=== PATIENT | female | born 1995 | race Hispanic/Latino ===

== ENCOUNTER 2020-07-05 09:52 | Emergency (ER) | payer OTHER ==
--- NOTE | 2020-07-05 10:06 | EDPHYS ---
Physician Documentation [facility] Name: Adelaida Pacheco Age: 25 yrs Sex: Female : 1995 Arrival Date: 07/05/2020 Time: 09:54 Bed 18 Private MD: CHRISTIE Physician Giuseppe Martin CONVEYOR FEEDER: 07/05 09:58 LMP 06/20/2020 jd3 Historical: - Allergies: 09:59 No Known Allergies; jd3 - PMHx: 09:59 Bipolar disorder; Schizophrenia; jd3 - PSHx: 09:59 ; jd3 - Immunization history:: Adult Immunizations unknown. - Social history:: Smoking status: Patient/guardian denies using tobacco, Stopped _ months ago 3. Vital Signs: 09:58 BP 131 / 87; Pulse 107; Resp 17 S; Temp 97.8(TE); Pulse Ox 99% on R/A; Weight 98.88 kg jd3 (R); Height 5 ft. 4 in. (162.56 cm) (R); Pain 10/10; 09:58 Body Mass Index 37.42 (98.88 kg, 162.56 cm) jd3 MDM: 09:59 Patient medically screened. jr8 Administered Medications: No medications were administered Disposition: 07/05/20 10:06 Patient left the facility before being seen by provider. - Patient left due to feeling better. Signatures: Javier Mathews PA PA jr8 Jarrell Caba RN RN jd3 Corrections: (The following items were deleted from the chart) 10:12 10:06 07/05/2020 10:06 Patient left the facility before being seen by provider. Reason jd3 stated they are leaving due to feeling better. jr8
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
[2020-07-05 10:41] VITALS: BP 131/87; TEMP 97.8; O2SAT 99
== END 2020-07-05 10:12 | disposition left against medical advice (07) ==
LOC: ER 09:52
DX: Z53.21 Procedure and treatment not carried out due to patient leaving prior to being seen by health care provider (principal)
CPT/HCPCS: 99283

== ENCOUNTER 2020-07-06 05:49 | Emergency (ER) | payer OTHER, SELFPAY ==
--- OUTSIDE RECORDS SUMMARY | 2020-07-06 05:52 | XMS REPORT | Clinical Summary ---
:1995 Author Organization [facility] Address [address] [place] [address] Care Team Providers Name Role Phone Sharpless Primary Care Provider Allergies No Known Allergies Medications Medication Sig Dispensed Refills Start Date End Date Status traZODone (DESYREL) 100 MG Take 200 mg by 0 Active tablet mouth nightly. risperiDONE (RISPERDAL) 1 Take 1 mg by 0 Active MG tablet mouth 2 (two) times daily. lisdexamfetamine (VYVANSE) Take 20 mg by 0 Active 20 MG capsule mouth every morning. Active Problems Not on file Social History Tobacco Use Types Packs/Day Years Used Date Never Smoker Smokeless Tobacco: Never Used Alcohol Use Drinks/Week oz/Week Comments No Sex Assigned at Date Recorded Not on file Last Filed Vital Signs Not on file Plan of Treatment Health Maintenance Due Date Last Done Comments CERVICAL CANCER SCREENING PAP ONLY (Age 21-65) 2015 INFLUENZA VACCINE (#1) 2020 Results Not on fileafter 07/06/2019
--- OUTSIDE RECORDS SUMMARY | 2020-07-06 05:52 | XMS REPORT | Clinical Summary ---
:1995 Author Organization [facility] Address [address] [place] [address] Care Team Providers Name Role Phone Unavailable Primary Care Provider Unavailable Allergies No Known Active Allergies Medications Not on file Active Problems Not on file Social History Tobacco Use Types Packs/Day Years Used Date Never Assessed Sex Assigned at Date Recorded Not on file Last Filed Vital Signs Not on file Plan of Treatment Not on file Results Not on fileafter 07/06/2019
--- OUTSIDE RECORDS SUMMARY | 2020-07-06 05:52 | XMS REPORT | Clinical Summary ---
:[address] [facility] Address [address] [place] [address] Care Team Providers Name Role Phone Unavailable Primary Care Provider Unavailable Allergies No Known Active Allergies Medications Medication Sig Dispensed Refills Start Date End Date Status traZODone (DESYREL) 100 Take 100 mg by 0 Active mg tablet mouth at bedtime nightly Dose and frequency unknown . PALIPERIDONE PALMITATE Inject 0 Active (INVEGA SUSTENNA IM) intramuscularly. lisdexamfetamine Take by mouth 0 Active (VYVANSE) 10 mg cap Dose and frequency unknown . Active Problems Problem Noted Date Suicidal behavior Substance induced mood disorder Aggression Psychosis Cocaine use disorder, moderate, dependence Social History Tobacco Use Types Packs/Day Years Used Date Current Every Day Smoker Cigarettes 1 Alcohol Use Drinks/Week oz/Week Comments No Sex Assigned at Date Recorded Not on file Last Filed Vital Signs Not on file Plan of Treatment Health Maintenance Due Date Last Done Comments Pap Cervical Cancer Scrn 2015 IMM Influenza Seasonal Mar to August (>/= 19 yrs) 03/14/2020 Results Not on fileafter 07/06/2019 Insurance Payer Benefit Plan / Subscriber ID Effective Phone Address T ype Group Dates [place] [employer] [id number] SSI [id number] 2019-Pres [phone] [place] [address] [employer] SELF-PAY SELF-PAY [id number] 2019-Pres [phone] [facility] [place] [address] [place] [phone] (Work) [phone]
--- OUTSIDE RECORDS SUMMARY | 2020-07-06 05:55 | XMS REPORT | Continuity of Care Document ---
:1995 Author Organization [facility] t Address [address] [place] [address] Care Team Providers Name Role Phone UNKNOWN Primary Care Physician Unavailable GISEL BEE M.D. Attending Clinician Unavailable KYLE CUNNINGHAM Attending Clinician Unavailable GISEL BEE M.D. 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 Health mood mood disorder disorder Aggression Aggression Disease Active [facility] Psychosis Psychosis Disease Active [facility] Cocaine Cocaine Disease Active [facility] use use Health disorder, disorder, moderate, moderate, dependence dependence Allergies, Adverse Reactions, Alerts Allergy Allergy Status Severity Reaction(s) Onset Inactive Treating Comm ents Source Name Type Date Date Clinician No Known DA Active [facility]11 [place] s 00:[facility]: [facility] 00 are [facility] No Known DA Active [facility] Allergie 09-16 [place] s 00:[facility]: [facility] 00 are [facility] risperid DA Active [facility] one 09-11 [place] 00:00: [facility] 00 are [facility] trazodon DA Active [facility] e 09-11 [place] 00:00: [facility] 00 are [facility] No Known DA Active U 2018-06 [facility] Allergie 07-21 [place] s 00:00: [facility] 00 are [facility] No DA Active U 2018-06 [facility] Allergy 07-15 [place] Informat 00:00: Healthc ion 00 are Availabl Hanska e shellfis FA Active MO [facility] h 09-18 [place] derived 00:00: d 00 [facility] Social History Social Habit Start Date Stop Date Quantity Comments Source History of tobacco Cigarette Smoker [facility] use Sex Assigned At [place] Yazidi Cigarettes smoked 2019-04-16 2019-04-16 [facility] current (pack per 00:00:00 00:00:00 day) - Reported Tobacco use and 2018-02-09 2018-02-09 Never used [place] exposure 00:00:00 00:00:00 Yazidi Alcohol intake 2018-02-09 2018-02-09 Current [place] 00:00:00 00:00:00 non-drinker of Yazidi alcohol (finding) Smoking Status Start Date Stop Date Source Current every day smoker 2018-02-09 00:00:00 Daisy starkey Yazidi Never smoker [facility] Medications Ordered Filled Start Stop Current Ordering Indication Dosage Frequency Signature Comments Components Source Medication Medication Date Date Medication? Clinician (SIG) Name Name traZODone 2018-06 Yes 100mg Take 100 [facility] (DESYREL) 1-03 mg by Health 100 mg 19:57: mouth at tablet 05 bedtime nightly Dose and frequency unknown . PALIPERIDON 2018-06 Yes Inject Alize is E PALMITATE -03 intramuscu He alth (INVEGA 19:57: larly. SUSTENNA 05 IM) lisdexamfet 2019-1 Yes Take by [place] [facility] amine 1-03 mouth Dose Health (VYVANSE) 19:57: and 10 mg cap 05 frequency unknown . trazodone 2018-0 Yes Take by Rc on HCl 8- mouth. Methodi (TRAZODONE 23:29: st ORAL) 32 quetiapine 2017-0 Yes Take by Eveline ton fumarate 8-28 mouth. [facility] (SEROQUEL 23:29: st XR ORAL) 32 traZODone 2018-0 Yes 200mg QD Take [address] [facility] (DESYREL) 1-24 mg [facility] - 100 MG 04:25: mouth Medical tablet 04 nightly. Center risperiDONE 2018-0 Yes 1mg Q.5D Take [address] (RISPERDAL) 1-24 by mouth 2 Juli kes - 1 MG tablet 04:25: (two) Medic al 04 times Center daily. lisdexamfet 2018-0 Yes 20mg QD Take [address] amine 1-24 by mouth [facility] - (VYVANSE) 04:25: every Medical 20 MG 04 morning. Center capsule Procedures This patient has no known procedures. Plan of Care Planned Activity Planned Date Details Comments Source Future Scheduled 2020-03-14 [facility] Influenza [facility] 00:00:00 Seasonal Mar to August (>/= 19 yrs) [code = IMM Influenza Seasonal Mar to August (>/= 19 yrs)] Future Scheduled 2020-02-[address] [facility] - Test 00:00:00 (#1) [code = [facility] Center INFLUENZA VACCINE (#1)] Future Scheduled 2015 [facility] for [facility] 00:00:00 malignant neoplasm of cervix (procedure) [code = 581818268] Future Scheduled [address] [facility] - Test 00:00:00 malignant neoplasm Medical C enter of cervix (procedure) [code = 578262165] Encounters Start End Encounter Admission Attending Care Care Encounter Source Date/Time Date/Time Type Type Clinicians Facility Department ID 2019-04-26 2019-04-26 Outpatient [facility] [id number] [place] 00:00:00 00:00:00 [facility] 2019-04-16 2019-04-16 Emergency [facility] [id number] [place] 17:05:32 17:05:32 [facility] 2017-09-22 2017-09-22 [facility] [id number] 29 [facility] 18:37:00 18:37:00 Geovanny BATRES 2017-05-20 2017-06-11 Inpatient Leticia BEE [facility] [id number] [facility] 21:36:00 17:13:00 Geovanny BATRES Results Test Description Test Time Test Comments Results Result Comments Source DRUGS OF ABUSE SCREEN URINE 2020-04-03 01:02:00 Test Item Value Reference Range Interpretation Comme nts UR COCAINE (test code = COCAU) NEGATIVE NEGATIVE This is a toxicology qualitative screening test only, whichmay detect parent c ompound or metabolite or r elatedsubstance. If confirmatory te sting is desired, pleaserequest d rug screen confirmation. T hese results are unconfirmed and should be used only for medical pur poses. Cut-off concentration f or Cocaine is 300 ng/mLRecommende d screening cut-off concentrations by the[facility] Facilitytance Abuse and [facility] Administration. UR CANABINOIDS (test code = POSITIVE NEGATIVE A This is a toxicology qualitative CANU) screening test only whichmay detect parent compound or metabolite or relatedsubstanc e. If confirmatory testing is kaylee red, pleaserequest drug screen con firmation. These results areunco nfirmed and should be used only fo r medical purposes. Cut-off concent ration for THC is 50 ng/mLRecommende d screening cut-off concentrations by theC[facility] Facilitytance Abuse and [facility] l [facility] Services Administration. UR AMPHETAMINE (test code = POSITIVE NEGATIVE A The ingestion of natural herbal and AMPHU) plant productsc ontaining Ephedra/Ephedra -Metabolites can produce in urin eone or more substances capa ble of cross-reacting withAmphetamine /Methamphetamine immunoassays. This testprovides a preliminary res ult only. A more specificalterna tive chemical method must be used to obtain aconfirmed analytical resu lt. This is a toxicology qual itative screening test only which may detect parent compund or meta bolite or relatedsubstanc e. If confirmatory testing is kaylee red, pleaserequest drug screen con firmation. These results areunco nfirmed and should be used only fo r medical purposes. Cut-off concent ration for Amphetamines is 1000 ng/mLRecommende d screening cut-off concentrations by [facility] and [facility] l [facility] Administration. UR BARBITURATE (test code = NEGATIVE NEGATIVE This is a toxicology qualitative BARBQLU) screening test only whichmay detect parent compund or metabolite or relatedsubstanc e. If confirmatory testing is kaylee red, pleaserequest drug screen con firmation. These results areunco nfirmed and should be used only fo r medical purposes. Cut-off concent ration for Barbiturates is 200 ng/mLRecommende d screening cut-off concentrations by the[facility] Facilityt[facility] Abuse and [facility] l [facility] Administration. UR BENZODIAZEPINE (test code = NEGATIVE NEGATIVE This is a toxicology qualitative BENZU) screening test only whichmay detect parent compound or metabolite or relatedsubstanc e. If confirmatory testing is kaylee red, pleaserequest drug screen con firmation. These results areunco nfirmed and should be used only fo r medical purposes. Cut-off concent ration for Benzodiazepines is 200 ng/mLRecommende d screening cut-off concentrations by [facility] and [facility] Services Administration. UR OPIATES QUAL (test code = NEGATIVE NEGATIVE This is a toxicology qualitative OPIAQLU) screening test only whichmay detect parent compound or metabolite or relatedsubstanc e. If confirmatory testing is kaylee red, pleaserequest drug screen con firmation. These results areunco nfirmed and should be used only fo r medical purposes. Cut-off concent ration for Opiates is 300 ng/mLRec ommended screening cut-off concent rations by the[facility] Ab use and Mental Health Services Administration. UR PHENCYCLIDINE (PCP) (test NEGATIVE NEGATIVE This is a toxicology qualitative code = PHENCU) screening trish t only whichmay detect parent compund or metabolite or relatedsubstanc e. If confirmatory testing is kaylee red, pleaserequest drug screen con firmation. These results areunco nfirmed and should be used only fo r medical purposes. Cut-off concent ration for PCP is 25 ng/mLRecommende d screening cut-off concentrations by theC[facility] Facilitytance Abuse and [facility] l [facility] Services Administration. URINALYSIS [id number] 00:51:00 Test Item Value Reference Range Interpretation Comments UA COLOR (test code = COLU) YELLOW YELLOW UA APPEARANCE (test code = APPU) Clear CLEAR UA GLUCOSE DIPSTICK (test code = NEGATIVE NEGATIVE DGLUU) UA BILIRUBIN DIPSTICK (test code = NEGATIVE NEGATIVE BILU) UA KETONE DIPSTICK (test code = Trace NEGATIVE A KETU) UA SPECIFIC GRAVITY (test code = 1.011 1.001-1.030 SGU) UA BLOOD DIPSTICK (test code = FLORECITA) NEGATIVE NEGATIVE UA PH DIPSTICK (test code = STEPH) 6.0 5.0-9.0 UA PROTEIN DIPSTICK (test code = NEGATIVE NEGATIVE PROU) UA UROBILINOGEN DIPSTICK (test code 2.0 <=1.0 A = URO) UA NITRITE DIPSTICK (test code = NEGATIVE NEGATIVE FARIDEH) UA ASCORBIC ACID DIPSTICK (test NEGATIVE code = AAU) UA LEUKOCYTE ESTERASE DIPSTICK NEGATIVE NEGATIVE (test code = LEUU) UA WBC (test code = WBCU) 0-5 /HPF 0-5 UA RBC (test code = RBCU) 0-5 /HPF 0-5 UA EPITHELIAL CELLS (test code = OCC /LPF NONE-FEW EPIU) UA BACTERIA (test code = BACU) None /HPF NONE SEEN COMPREHENSIVE METABOLIC [id number] 23:58:00 Test Item Value Reference Range Interpretation Comments SODIUM (test code = 139 mmol/L 135-145 N NA) POTASSIUM (test 3.0 mmol/L 3.6-5.0 L code = K) CHLORIDE (test code 105 mmol/L 101-111 N = CL) CARBON DIOXIDE 22 mmol/L 21-31 N (test code = CO2) GLUCOSE (test code 175 mg/dl 70-100 H = GLU) BLOOD UREA NITROGEN 9 mg/dl 6-20 N (test code = BUN) GLOMERULAR >=60 max >60 The estimated FILTRATION RATE estimate glomerular (test code = GFR) filtration rate is computed usingpatient ra ce, age (>18), sex, and serum creatinin e. If anyof the ne eded data elements a re missing the Laboratory zane ot compute an estimation of t he glomerular filtration rate . CREATININE (test 0.92 mg/dL 0.44-1.03 N code = CREAT) TOTAL PROTEIN (test 6.5 g/dL 6.7-8.2 L code = PROT) ALBUMIN (test code 3.5 g/dL 3.2-5.5 N = ALB) CALCIUM (test code 9.1 mg/dL 8.5-10.5 N = CA) BILIRUBIN TOTAL 0.60 mg/dL 0.2-1.3 N (test code = BILT) SGOT/AST (test code 29 U/L 10-42 N = AST) SGPT/ALT (test code 11 U/L 10-60 N = ALT) ALKALINE 75 U/L 42-121 N PHOSPHATASE (test code = ALKP) THYROID STIMULATING [id number] 23:58:00 Test Item Value Reference Range Interpretation Comments THYROID STIMULATING HORMONE 2.335 uIU/ml 0.450-5.330 N (test code = TSH) [id number] 23:58:00 Test Item Value Reference Range Interpretation Comments ACETAMINOPHEN (test code = ACET) < 10.0 ug/ml 10.0-30.0 L [id number] 23:58:00 Test Item Value Reference Range Interpretation Comments SALICYLATE (test code = DELBERT) < 4.0 mg/dl 0.0-30.0 N [id number] 23:58:00 Test Item Value Reference Range Interpretation Comments ALCOHOL (test code = < 5 mg/dl Interpr etive Data:il: ALC) Ethanol Level To convert into le gal units, divide r esult by 1,000 COMPREHENSIVE METABOLIC [id number] 23:47:00 Test Item Value Reference Range Interpretation Comments SODIUM (test code = 139 mmol/L 135-145 N NA) POTASSIUM (test 3.0 mmol/L 3.6-5.0 L code = K) CHLORIDE (test code 105 mmol/L 101-111 N = CL) CARBON DIOXIDE 22 mmol/L 21-31 N (test code = CO2) GLUCOSE (test code 175 mg/dl 70-100 H = GLU) BLOOD UREA NITROGEN 9 mg/dl 6-20 N (test code = BUN) GLOMERULAR >=60 max >60 The estimated FILTRATION RATE estimate glomerular (test code = GFR) filtration rate is computed usingpatient ra ce, age (>18), sex, and serum creatinin e. If anyof the ne eded data elements a re missing the Laboratory zane ot compute an estimation of t he glomerular filtration rate . CREATININE (test 0.92 mg/dL 0.44-1.03 N code = CREAT) TOTAL PROTEIN (test 6.5 g/dL 6.7-8.2 L code = PROT) ALBUMIN (test code 3.5 g/dL 3.2-5.5 N = ALB) CALCIUM (test code 9.1 mg/dL 8.5-10.5 N = CA) BILIRUBIN TOTAL 0.60 mg/dL 0.2-1.3 N (test code = BILT) SGOT/AST (test code 29 U/L 10-42 N = AST) SGPT/ALT (test code 11 U/L 10-60 N = ALT) ALKALINE 75 U/L 42-121 N PHOSPHATASE (test code = ALKP) THYROID STIMULATING [id number] 23:47:00 Test Item Value Reference Range Interpretation Comments THYROID STIMULATING HORMONE (test uIU/ml 0.450-5.330 code = TSH) [id number] 23:47:00 Test Item Value Reference Range Interpretation Comments ACETAMINOPHEN (test code = ACET) < 10.0 ug/ml 10.0-30.0 L [id number] 23:47:00 Test Item Value Reference Range Interpretation Comments SALICYLATE (test code = DELBERT) < 4.0 mg/dl 0.0-30.0 N [id number] 23:47:00 Test Item Value Reference Range Interpretation Comments ALCOHOL (test code = < 5 mg/dl Interpr etive Data:il: ALC) Ethanol Level To convert into le gal units, divide r esult by 1,000 COMPREHENSIVE METABOLIC [id number] 23:44:00 Test Item Value Reference Range Interpretation Comments SODIUM (test code = 139 mmol/L 135-145 N NA) POTASSIUM (test 3.0 mmol/L 3.6-5.0 L code = K) CHLORIDE (test code 105 mmol/L 101-111 N = CL) CARBON DIOXIDE 22 mmol/L 21-31 N (test code = CO2) GLUCOSE (test code 175 mg/dl 70-100 H = GLU) BLOOD UREA NITROGEN 9 mg/dl 6-20 N (test code = BUN) GLOMERULAR >=60 max >60 The estimated FILTRATION RATE estimate glomerular (test code = GFR) filtration rate is computed usingpatient ra ce, age (>18), sex, and serum creatinin e. If anyof the ne eded data elements a re missing the Laboratory zane ot compute an estimation of t he glomerular filtration rate . CREATININE (test 0.92 mg/dL 0.44-1.03 N code = CREAT) TOTAL PROTEIN (test 6.5 g/dL 6.7-8.2 L code = PROT) ALBUMIN (test code 3.5 g/dL 3.2-5.5 N = ALB) CALCIUM (test code 9.1 mg/dL 8.5-10.5 N = CA) BILIRUBIN TOTAL mg/dL 0.2-1.3 (test code = BILT) SGOT/AST (test code U/L 10-42 = AST) SGPT/ALT (test code U/L 10-60 = ALT) ALKALINE U/L 42-121 PHOSPHATASE (test code = ALKP) THYROID STIMULATING [id number] 23:44:00 Test Item Value Reference Range Interpretation Comments THYROID STIMULATING HORMONE (test uIU/ml 0.450-5.330 code = TSH) [id number] 23:44:00 Test Item Value Reference Range Interpretation Comments ACETAMINOPHEN (test code = ACET) ug/ml 10.0-30.0 [id number] 23:44:00 Test Item Value Reference Range Interpretation Comments SALICYLATE (test code = DELBERT) mg/dl 0.0-30.0 [id number] 23:44:00 Test Item Value Reference Range Interpretation Comments ALCOHOL (test code = ALC) mg/dl COMPREHENSIVE METABOLIC [id number] 23:40:00 Test Item Value Reference Range Interpretation Comments SODIUM (test code = 139 mmol/L 135-145 N NA) POTASSIUM (test 3.0 mmol/L 3.6-5.0 L code = K) CHLORIDE (test code 105 mmol/L 101-111 N = CL) CARBON DIOXIDE 22 mmol/L 21-31 N (test code = CO2) GLUCOSE (test code 175 mg/dl 70-100 H = GLU) BLOOD UREA NITROGEN 9 mg/dl 6-20 N (test code = BUN) GLOMERULAR >=60 max >60 The estimated FILTRATION RATE estimate glomerular (test code = GFR) filtration rate is computed usingpatient ra ce, age (>18), sex, and serum creatinin e. If anyof the ne eded data elements a re missing the Laboratory zane ot compute an estimation of t he glomerular filtration rate . CREATININE (test 0.92 mg/dL 0.44-1.03 N code = CREAT) TOTAL PROTEIN (test g/dL 6.7-8.2 code = PROT) ALBUMIN (test code g/dL 3.2-5.5 = ALB) CALCIUM (test code 9.1 mg/dL 8.5-10.5 N = CA) BILIRUBIN TOTAL mg/dL 0.2-1.3 (test code = BILT) SGOT/AST (test code U/L 10-42 = AST) SGPT/ALT (test code U/L 10-60 = ALT) ALKALINE U/L 42-121 PHOSPHATASE (test code = ALKP) THYROID STIMULATING [id number] 23:40:00 Test Item Value Reference Range Interpretation Comments THYROID STIMULATING HORMONE (test uIU/ml 0.450-5.330 code = TSH) [id number] 23:40:00 Test Item Value Reference Range Interpretation Comments ACETAMINOPHEN (test code = ACET) ug/ml 10.0-30.0 [id number] 23:40:00 Test Item Value Reference Range Interpretation Comments SALICYLATE (test code = DELBERT) mg/dl 0.0-30.0 [id number] 23:40:00 Test Item Value Reference Range Interpretation Comments ALCOHOL (test code = ALC) mg/dl HCG SERUM [id number] 23:39:00 Test Item Value Reference Range Interpretation Comments HCG SERUM QUAL NEGATIVE NEGATIVE This is a srikanth litative (test code = HCGQL) screenin g test.The quantitative Bh cg may be helpful.Weakly positive results should be repeated in 48 hours. CBC W/AUTO [id number] 23:23:00 Test Item Value Reference Range Interpretation Comments WHITE BLOOD CELL (test code = 9.2 x10 3/uL 3.2-11.5 N WBC) RED BLOOD CELL (test code = 3.98 x10(6)/m 3.70-5.10 N RBC) HEMOGLOBIN (test code = HGB) 12.1 g/dL 12.0-15.0 N HEMATOCRIT (test code = HCT) 36.8 % 35.7-44.8 N MEAN CELL VOLUME (test code = 93 fL 80-100 N MCV) MEAN CELL HGB (test code = MCH) 30.4 pg 26.2-33.8 N MEAN CELL HGB CONCENTRATION 32.9 g/dL 30.0-34.0 N (test code = MCHC) RED CELL DISTRIBUTION WIDTH 13.8 % 11.3-14.5 N (test code = RDW) PLATELET COUNT (test code = 289 x10 3/uL 130-408 N PLT) MEAN PLATELET VOLUME (test code 10.7 fL 8.6-12.6 N = MPV) NEUTROPHIL % (test code = NT%) 56.3 % 40.0-70.0 N IMMATURE GRANULOCYTE % (test 0.5 % 0.0-2.0 N code = IG%) LYMPHOCYTE % (test code = LY%) 34.3 % 20-40 N MONOCYTE % (test code = MO%) 6.3 % 1-10 N EOSINOPHIL % (test code = EO%) 2.2 % 0.0-5.0 N BASOPHIL % (test code = BA%) 0.4 % 0.0-1.0 N NUCLEATED RBC % (test code = 0.0 % 0.0-0.9 N NRBC%) NEUTROPHIL # (test code = NT#) 5.2 x10 3/uL 1.6-7.2 N LYMPHOCYTE # (test code = LY#) 3.14 x10 3/uL 1.1-2.7 H MONOCYTE # (test code = MO#) 0.6 x10 3/uL 0.3-0.8 N EOSINOPHIL # (test code = EO#) 0.2 x10 3/uL 0.0-0.5 N BASOPHIL # (test code = BA#) 0.0 x10 3/uL 0.0-0.1 N CBC W/AUTO [id number] 23:21:00 Test Item Value Reference Range Interpretation Comments WHITE BLOOD CELL (test code = 9.2 x10 3/uL 3.2-11.5 N WBC) RED BLOOD CELL (test code = 3.98 x10(6)/m 3.70-5.10 N RBC) HEMOGLOBIN (test code = HGB) 12.1 g/dL 12.0-15.0 N HEMATOCRIT (test code = HCT) 36.8 % 35.7-44.8 N MEAN CELL VOLUME (test code = 93 fL 80-100 N MCV) MEAN CELL HGB (test code = MCH) 30.4 pg 26.2-33.8 N MEAN CELL HGB CONCENTRATION 32.9 g/dL 30.0-34.0 N (test code = MCHC) RED CELL DISTRIBUTION WIDTH % 11.3-14.5 (test code = RDW) PLATELET COUNT (test code = x10 3/uL 130-408 PLT) MEAN PLATELET VOLUME (test code 10.7 fL 8.6-12.6 N = MPV) NEUTROPHIL % (test code = NT%) % 40.0-70.0 LYMPHOCYTE % (test code = LY%) % 20-40 MONOCYTE % (test code = MO%) % 1-10 EOSINOPHIL % (test code = EO%) % 0.0-5.0 BASOPHIL % (test code = BA%) % 0.0-1.0 NUCLEATED RBC % (test code = % 0.0-0.9 NRBC%) NEUTROPHIL # (test code = NT#) x10 3/uL 1.6-7.2 LYMPHOCYTE # (test code = LY#) x10 3/uL 1.1-2.7 MONOCYTE # (test code = MO#) x10 3/uL 0.3-0.8 EOSINOPHIL # (test code = EO#) x10 3/uL 0.0-0.5 - XR CHEST 1 [id number] 23:18:00 [facility] : 1995 Sex: FPatient Name: SETH PIEDRA Unit No: [id number] EXAMS: CPT: [id number] XR CHEST 1 [id number] CHEST 1 VIEW CLINICAL HISTORY: Palpitations COMP ARISON: 10/27/2019. A single frontal view of the chest is submitted. FINDINGS: The cardiac silhouette is normal in size. Vascularity appears normal. The lungs are clear. No pleural effusion or pneumothorax is seen. No osseous abnormalities are seen. IMPRESSION: Negative chest radiograph. at 2318 Reported and signed by: Macho Carolina MD CC: Technologist: Lawanda Miles Time: DAP (Gy m2): Air Kerma (mGy): Trscr Dt/Tm: 04/02/2020 (387) by:[email or web address] Orig Print D/T: S: 04/02/2020 ([id number]) BATCH NO: N/A Name: SETH PIEDRA [facility] Phys: ELIZABETHGLORIA Heath JudyJeffrey [address] [place] : 1995 Age: 25 Sex: [place] [address] Loc: N.ERS Exam Date: 04/02/2020 Status: REG ER PH: FAX: PAGE 1 Signed ReportDRUGS OF ABUSE SCREEN [id number] 16:53:00 Test Item Value Reference Range Interpretation Comments UR COCAINE (test code NEGATIVE NEGATIVE This i s a toxicology = COCAU) qualitative scr eening test only, whic hmay detect parent c ompound or metabolite or relatedsubstanc e. If confirmatory te sting is desired, please request drug screen con firmation. These results a re unconfirmed and should be used only for m edical purposes. Cut- off concentration f or Cocaine is 300 ng/mLRec ommended screening cut-o ff concentrations by thebst[facility] hospitalce Ab use and [facility] Administration. UR CANABINOIDS (test NEGATIVE NEGATIVE This is a toxicology code = CANU) qualitative scr eening test only which may detect parent compound or metabolite or relatedsubstanc e. If confirmatory te sting is desired, please request drug screen con firmation. These results areunconfirmed and should be used only fo r medical purposes. Cut-o ff concentration f or THC is 50 ng/mLRecomme nded screening cut-o ff concentrations by thebstance Ab use and Mental Health S ervices Administration. UR AMPHETAMINE (test NEGATIVE NEGATIVE The ing estion of natural code = AMPHU) herbal and yuki nt productscontain ing Ephedra/Ephedra -Metabolit es can produce in urineone or mor e substances capa ble of cross-reacting withAmphetamine /Methamphe tamine immunoas says. This testprovid es a preliminary res ult only. A more specificalterna tive chemical method must be used to obtain aconfirmed analytical resu lt. This is a toxicology qualitative scr eening test only which may detect parent compund or metabolite or relatedsubstanc e. If confirmatory te sting is desired, please request drug screen con firmation. These results areunconfirmed and should be used only fo r medical purposes. Cut-o ff concentration f or Amphetamines is 1000 ng/mLRecommende d screening cut-o ff concentrations by thebstance Ab use and [facility] Administration. UR BARBITURATE (test NEGATIVE NEGATIVE This is a toxicology code = BARBQLU) qualitative screening test only which may detect parent compund or metabolite or relatedsubstanc e. If confirmatory te sting is desired, please request drug screen con firmation. These results areunconfirmed and should be used only fo r medical purposes. Cut-o ff concentration f or Barbiturates is 200 ng/mLRecommende d screening cut-o ff concentrations by thebstance Ab use and [facility]. UR BENZODIAZEPINE NEGATIVE NEGATIVE This is a toxicology (test code = BENZU) qualitat rogelio screening test only which may detect parent compound or metabolite or relatedsubstanc e. If confirmatory te sting is desired, please request drug screen con firmation. These results areunconfirmed and should be used only fo r medical purposes. Cut-o ff concentration f or Benzodiazepines is 200 ng/mLRecommende d screening cut-o ff concentrations by thebstance Ab use and [facility]. UR OPIATES QUAL (test NEGATIVE NEGATIVE This i s a toxicology code = OPIAQLU) qualitative screening test only which may detect parent compound or metabolite or relatedsubstanc e. If confirmatory te sting is desired, please request drug screen con firmation. These results areunconfirmed and should be used only fo r medical purposes. Cut-o ff concentration f or Opiates is 300 ng/mLRec ommended screening cut-o ff concentrations by thebstance Ab use and [facility]. UR PHENCYCLIDINE NEGATIVE NEGATIVE This is a t oxicology (PCP) (test code = qualitati ve screening PHENCU) test only which may detect parent compund or metabolite or relatedsubstanc e. If confirmatory te sting is desired, please request drug screen con firmation. These results areunconfirmed and should be used only fo r medical purposes. Cut-o ff concentration f or PCP is 25 ng/mLRecomme nded screening cut-o ff concentrations by [facility] use [facility]. URINALYSIS [id number] 16:33:00 Test Item Value Reference Range Interpretation Comments UA COLOR (test code = COLU) YELLOW YELLOW UA APPEARANCE (test code = APPU) Clear CLEAR UA GLUCOSE DIPSTICK (test code = NEGATIVE NEGATIVE DGLUU) UA BILIRUBIN DIPSTICK (test code = NEGATIVE NEGATIVE BILU) UA KETONE DIPSTICK (test code = Trace NEGATIVE A KETU) UA SPECIFIC GRAVITY (test code = 1.006 1.001-1.030 SGU) UA BLOOD DIPSTICK (test code = 3+ NEGATIVE FLORECITA) UA PH DIPSTICK (test code = STEPH) 6.0 5.0-9.0 UA PROTEIN DIPSTICK (test code = NEGATIVE NEGATIVE PROU) UA UROBILINOGEN DIPSTICK (test NEGATIVE <=1.0 code = URO) UA NITRITE DIPSTICK (test code = NEGATIVE NEGATIVE FARIDEH) UA ASCORBIC ACID DIPSTICK (test NEGATIVE code = AAU) UA LEUKOCYTE ESTERASE DIPSTICK NEGATIVE NEGATIVE (test code = LEUU) UA WBC (test code = WBCU) 6-10 /HPF 0-5 UA RBC (test code = RBCU) 11-20 /HPF 0-5 UA EPITHELIAL CELLS (test code = FEW /LPF NONE-FEW EPIU) UA BACTERIA (test code = BACU) 1+ /HPF NONE SEEN A BASIC METABOLIC [id number] 14:44:00 Test Item Value Reference Range Interpretation Comments SODIUM (test code 140 mmol/L 135-145 N = NA) POTASSIUM (test 3.2 mmol/L 3.6-5.0 L code = K) CHLORIDE (test 106 mmol/L 101-111 N code = CL) CARBON DIOXIDE 21 mmol/L 21-31 N (test code = CO2) GLUCOSE (test code 113 mg/dl 70-100 H = GLU) BLOOD UREA < 5 mg/dl 6-20 L NITROGEN (test code = BUN) GLOMERULAR >=60 max >60 The estimated FILTRATION RATE estimate glomerular (test code = GFR) filtration rate is computed usingpatient ra ce, age (>18), sex, and serum creatinin e. If anyof the neede d data elements a re missing the Laboratory zane ot compute an estimation of t he glomerular filtration rate . CREATININE (test 0.81 mg/dL 0.44-1.03 N code = CREAT) CALCIUM (test code 9.5 mg/dL 8.5-10.5 N = CA) COMPREHENSIVE METABOLIC [id number] 14:44:00 Test Item Value Reference Range Interpretation Comments TOTAL PROTEIN (test code = PROT) 7.3 g/dL 6.7-8.2 N ALBUMIN (test code = ALB) 3.9 g/dL 3.2-5.5 N BILIRUBIN TOTAL (test code = BILT) 0.30 mg/dL 0.2-1.3 N SGOT/AST (test code = AST) 20 U/L 10-42 N SGPT/ALT (test code = ALT) 10 U/L 10-60 N ALKALINE PHOSPHATASE (test code = 87 U/L 42-121 N ALKP) LIVER FUNCTION [id number] 14:44:00 Test Item Value Reference Range Interpretation Comments BILIRUBIN DIRECT (test code = BILD) 0.1 mg/dL 0.00-0.20 N [id number] 14:44:00 Test Item Value Reference Range Interpretation Comments ALCOHOL (test code = < 5 mg/dl Interpr etive Data:il: ALC) Ethanol Level To convert into le gal units, divide r esult by 1,000 BASIC METABOLIC [id number] 14:38:00 Test Item Value Reference Range Interpretation Comments SODIUM (test code 140 mmol/L 135-145 N = NA) POTASSIUM (test 3.2 mmol/L 3.6-5.0 L code = K) CHLORIDE (test 106 mmol/L 101-111 N code = CL) CARBON DIOXIDE 21 mmol/L 21-31 N (test code = CO2) GLUCOSE (test code 113 mg/dl 70-100 H = GLU) BLOOD UREA < 5 mg/dl 6-20 L NITROGEN (test code = BUN) GLOMERULAR >=60 max >60 The estimated FILTRATION RATE estimate glomerular (test code = GFR) filtration rate is computed usingpatient ra ce, age (>18), sex, and serum creatinin e. If anyof the neede d data elements a re missing the Laboratory zane ot compute an estimation of t he glomerular filtration rate . CREATININE (test 0.81 mg/dL 0.44-1.03 N code = CREAT) CALCIUM (test code 9.5 mg/dL 8.5-10.5 N = CA) COMPREHENSIVE METABOLIC [id number] 14:38:00 Test Item Value Reference Range Interpretation Comments TOTAL PROTEIN (test code = PROT) g/dL 6.7-8.2 ALBUMIN (test code = ALB) g/dL 3.2-5.5 BILIRUBIN TOTAL (test code = BILT) mg/dL 0.2-1.3 SGOT/AST (test code = AST) U/L 10-42 SGPT/ALT (test code = ALT) U/L 10-60 ALKALINE PHOSPHATASE (test code = U/L 42-121 ALKP) LIVER FUNCTION [id number] 14:38:00 Test Item Value Reference Range Interpretation Comments BILIRUBIN DIRECT (test code = BILD) mg/dL 0.00-0.20 [id number] 14:38:00 Test Item Value Reference Range Interpretation Comments ALCOHOL (test code = ALC) mg/dl BASIC METABOLIC [id number] 14:38:00 Test Item Value Reference Range Interpretation Comments SODIUM (test code 140 mmol/L 135-145 N = NA) POTASSIUM (test 3.2 mmol/L 3.6-5.0 L code = K) CHLORIDE (test 106 mmol/L 101-111 N code = CL) CARBON DIOXIDE 21 mmol/L 21-31 N (test code = CO2) GLUCOSE (test code 113 mg/dl 70-100 H = GLU) BLOOD UREA < 5 mg/dl 6-20 L NITROGEN (test code = BUN) GLOMERULAR >=60 max >60 The estimated FILTRATION RATE estimate glomerular (test code = GFR) filtration rate is computed usingpatient ra ce, age (>18), sex, and serum creatinin e. If anyof the neede d data elements a re missing the Laboratory zane ot compute an estimation of t he glomerular filtration rate . CREATININE (test 0.81 mg/dL 0.44-1.03 N code = CREAT) CALCIUM (test code 9.5 mg/dL 8.5-10.5 N = CA) COMPREHENSIVE METABOLIC [id number] 14:38:00 Test Item Value Reference Range Interpretation Comments TOTAL PROTEIN (test code = PROT) 7.3 g/dL 6.7-8.2 N ALBUMIN (test code = ALB) 3.9 g/dL 3.2-5.5 N BILIRUBIN TOTAL (test code = BILT) mg/dL 0.2-1.3 SGOT/AST (test code = AST) U/L 10-42 SGPT/ALT (test code = ALT) U/L 10-60 ALKALINE PHOSPHATASE (test code = U/L 42-121 ALKP) LIVER FUNCTION [id number] 14:38:00 Test Item Value Reference Range Interpretation Comments BILIRUBIN DIRECT (test code = BILD) mg/dL 0.00-0.20 [id number] 14:38:00 Test Item Value Reference Range Interpretation Comments ALCOHOL (test code = ALC) mg/dl HCG SERUM [id number] 14:35:00 Test Item Value Reference Range Interpretation Comments HCG SERUM QUAL NEGATIVE NEGATIVE This is a srikanth litative (test code = HCGQL) screenin g test.The quantitative Bh cg may be helpful.Weakly positive results should be repeated in 48 hours. CBC W/AUTO [id number] 14:29:00 Test Item Value Reference Range Interpretation Comments WHITE BLOOD CELL (test code = 8.9 x10 3/uL 3.2-11.5 N WBC) RED BLOOD CELL (test code = 4.50 x10(6)/m 3.70-5.10 N RBC) HEMOGLOBIN (test code = HGB) 14.0 g/dL 12.0-15.0 N HEMATOCRIT (test code = HCT) 41.2 % 35.7-44.8 N MEAN CELL VOLUME (test code = 92 fL 80-100 N MCV) MEAN CELL HGB (test code = MCH) 31.1 pg 26.2-33.8 N MEAN CELL HGB CONCENTRATION 34.0 g/dL 30.0-34.0 N (test code = MCHC) RED CELL DISTRIBUTION WIDTH 14.4 % 11.3-14.5 N (test code = RDW) PLATELET COUNT (test code = 262 x10 3/uL 130-408 N PLT) MEAN PLATELET VOLUME (test code 10.5 fL 8.6-12.6 N = MPV) NEUTROPHIL % (test code = NT%) 74.7 % 40.0-70.0 H IMMATURE GRANULOCYTE % (test 0.8 % 0.0-2.0 N code = IG%) LYMPHOCYTE % (test code = LY%) 15.3 % 20-40 L MONOCYTE % (test code = MO%) 8.6 % 1-10 N EOSINOPHIL % (test code = EO%) 0.3 % 0.0-5.0 N BASOPHIL % (test code = BA%) 0.3 % 0.0-1.0 N NUCLEATED RBC % (test code = 0.0 % 0.0-0.9 N NRBC%) NEUTROPHIL # (test code = NT#) 6.6 x10 3/uL 1.6-7.2 N LYMPHOCYTE # (test code = LY#) 1.36 x10 3/uL 1.1-2.7 N MONOCYTE # (test code = MO#) 0.8 x10 3/uL 0.3-0.8 N EOSINOPHIL # (test code = EO#) 0.0 x10 3/uL 0.0-0.5 N BASOPHIL # (test code = BA#) 0.0 x10 3/uL 0.0-0.1 N CBC W/AUTO [id number] 14:27:00 Test Item Value Reference Range Interpretation Comments WHITE BLOOD CELL (test code = 8.9 x10 3/uL 3.2-11.5 N WBC) RED BLOOD CELL (test code = 4.50 x10(6)/m 3.70-5.10 N RBC) HEMOGLOBIN (test code = HGB) 14.0 g/dL 12.0-15.0 N HEMATOCRIT (test code = HCT) 41.2 % 35.7-44.8 N MEAN CELL VOLUME (test code = 92 fL 80-100 N MCV) MEAN CELL HGB (test code = MCH) 31.1 pg 26.2-33.8 N MEAN CELL HGB CONCENTRATION 34.0 g/dL 30.0-34.0 N (test code = MCHC) RED CELL DISTRIBUTION WIDTH % 11.3-14.5 (test code = RDW) PLATELET COUNT (test code = x10 3/uL 130-408 PLT) MEAN PLATELET VOLUME (test code 10.5 fL 8.6-12.6 N = MPV) NEUTROPHIL % (test code = NT%) % 40.0-70.0 LYMPHOCYTE % (test code = LY%) % 20-40 MONOCYTE % (test code = MO%) % 1-10 EOSINOPHIL % (test code = EO%) % 0.0-5.0 BASOPHIL % (test code = BA%) % 0.0-1.0 NUCLEATED RBC % (test code = % 0.0-0.9 NRBC%) NEUTROPHIL # (test code = NT#) x10 3/uL 1.6-7.2 LYMPHOCYTE # (test code = LY#) x10 3/uL 1.1-2.7 MONOCYTE # (test code = MO#) x10 3/uL 0.3-0.8 EOSINOPHIL # (test code = EO#) x10 3/uL 0.0-0.5 Coronavirus 2018 nCoV [id number] 18:04:00 Test Item Value Reference Range Interpretation Comments Coronavirus 2019 Negative Negative This test h as been nCoV Bedside (test authorize d by FDA under code = [id number]) an EUA for use byauthorized laboratories. T his test has been author ized only for the detecti on ofnucleic acid from SARS-CoV-2, not for any other viruses orpathogens. Th is test is only authorized for the duration of thedeclaration that circumstances e xist justifying theauthorizatio n of emergency use o f in vitro diagnostic test sfor the detection and/o r diagnosis of CO VID-19 under Jfmlcyz24 4(b)(1) of the Act, 21 U.S .C 360bbb-3(b)(1), unless theauthorizatio n is terminated or r evoked sooner. BASIC METABOLIC [id number] 17:20:00 Test Item Value Reference Range Interpretation Comments SODIUM (test code 133 mmol/L 135-145 L = NA) POTASSIUM (test 3.8 mmol/L 3.6-5.0 N code = K) CHLORIDE (test 102 mmol/L 101-111 N code = CL) CARBON DIOXIDE 26 mmol/L 21-31 N (test code = CO2) GLUCOSE (test code 91 mg/dl 70-100 N = GLU) BLOOD UREA 11 mg/dl 6-20 N NITROGEN (test code = BUN) GLOMERULAR >=60 max >60 The estimated FILTRATION RATE estimate glomerular (test code = GFR) filtration rate is computed usingpatient ra ce, age (>18), sex, and serum creatinin e. If anyof the neede d data elements a re missing the Laboratory zane ot compute an estimation of t he glomerular filtration rate . CREATININE (test 0.96 mg/dL 0.44-1.03 N code = CREAT) CALCIUM (test code 8.6 mg/dL 8.5-10.5 N = CA) LIVER FUNCTION [id number] 17:20:00 Test Item Value Reference Range Interpretation Comments TOTAL PROTEIN (test code = PROT) 6.4 g/dL 6.7-8.2 L ALBUMIN (test code = ALB) 3.5 g/dL 3.2-5.5 N BILIRUBIN TOTAL (test code = BILT) 0.50 mg/dL 0.2-1.3 N BILIRUBIN DIRECT (test code = 0.1 mg/dL 0.00-0.20 N BILD) SGOT/AST (test code = AST) 17 U/L 10-42 N SGPT/ALT (test code = ALT) 9 U/L 10-60 L ALKALINE PHOSPHATASE (test code = 67 U/L 42-121 N ALKP) [id number] 17:20:00 Test Item Value Reference Range Interpretation Comments ACETAMINOPHEN (test code = ACET) < 10.0 ug/ml 10.0-30.0 L [id number] 17:20:00 Test Item Value Reference Range Interpretation Comments SALICYLATE (test code = DELBERT) < 4.0 mg/dl 0.0-30.0 N [id number] 17:20:00 Test Item Value Reference Range Interpretation Comments ALCOHOL (test code = < 5 mg/dl Interpr etive Data:il: ALC) Ethanol Level To convert into le gal units, divide r esult by 1,000 DRUGS OF ABUSE SCREEN [id number] 16:55:00 Test Item Value Reference Range Interpretation Comments UR COCAINE (test code NEGATIVE NEGATIVE This i s a toxicology = COCAU) qualitative scr eening test only, whic hmay detect parent c ompound or metabolite or relatedsubstanc e. If confirmatory te sting is desired, please request drug screen con firmation. These results a re unconfirmed and should be used only for m edical purposes. Cut- off concentration f or Cocaine is 300 ng/mLRec ommended screening cut-o ff concentrations by the[facility]stance Ab use and [facility]. UR CANABINOIDS (test POSITIVE NEGATIVE A This is a toxicology code = CANU) qualitative scr eening test only which may detect parent compound or metabolite or relatedsubstanc e. If confirmatory te sting is desired, please request drug screen con firmation. These results areunconfirmed and should be used only fo r medical purposes. Cut-o ff concentration f or THC is 50 ng/mLRecomme nded screening cut-o ff concentrations by [facility]stance [facility]. UR AMPHETAMINE (test NEGATIVE NEGATIVE The ing estion of natural code = AMPHU) herbal and yuki nt productscontain ing Ephedra/Ephedra -Metabolit es can produce in urineone or mor e substances capa ble of cross-reacting withAmphetamine /Methamphe tamine immunoas says. This testprovid es a preliminary res ult only. A more specificalterna tive chemical method must be used to obtain aconfirmed analytical resu lt. This is a toxicology qualitative scr eening test only which may detect parent compund or metabolite or relatedsubstanc e. If confirmatory te sting is desired, please request drug screen con firmation. These results areunconfirmed and should be used only fo r medical purposes. Cut-o ff concentration f or Amphetamines is 1000 ng/mLRecommende d screening cut-o ff concentrations by theSubstance Ab use and [facility]. UR BARBITURATE (test NEGATIVE NEGATIVE This is a toxicology code = BARBQLU) qualitative screening test only which may detect parent compund or metabolite or relatedsubstanc e. If confirmatory te sting is desired, please request drug screen con firmation. These results areunconfirmed and should be used only fo r medical purposes. Cut-o ff concentration f or Barbiturates is 200 ng/mLRecommende d screening cut-o ff concentrations by [facility] use and [facility]. UR BENZODIAZEPINE NEGATIVE NEGATIVE This is a toxicology (test code = BENZU) qualitat rogelio screening test only which may detect parent compound or metabolite or relatedsubstanc e. If confirmatory te sting is desired, please request drug screen con firmation. These results areunconfirmed and should be used only fo r medical purposes. Cut-o ff concentration f or Benzodiazepines is 200 ng/mLRecommende d screening cut-o ff concentrations by [facility] use and [facility]. UR OPIATES QUAL (test NEGATIVE NEGATIVE This i s a toxicology code = OPIAQLU) qualitative screening test only which may detect parent compound or metabolite or relatedsubstanc e. If confirmatory te sting is desired, please request drug screen con firmation. These results areunconfirmed and should be used only fo r medical purposes. Cut-o ff concentration f or Opiates is 300 ng/mLRec ommended screening cut-o ff concentrations by [facility] use and [facility]. UR PHENCYCLIDINE NEGATIVE NEGATIVE This is a t oxicology (PCP) (test code = qualitati ve screening PHENCU) test only which may detect parent compund or metabolite or relatedsubstanc e. If confirmatory te sting is desired, please request drug screen con firmation. These results areunconfirmed and should be used only fo r medical purposes. Cut-o ff concentration f or PCP is 25 ng/mLRecomme nded screening cut-o ff concentrations by [facility] use and [facility]. BASIC METABOLIC [id number] 16:37:00 Test Item Value Reference Range Interpretation Comments SODIUM (test code 133 mmol/L 135-145 L = NA) POTASSIUM (test 3.8 mmol/L 3.6-5.0 N code = K) CHLORIDE (test 102 mmol/L 101-111 N code = CL) CARBON DIOXIDE 26 mmol/L 21-31 N (test code = CO2) GLUCOSE (test code 91 mg/dl 70-100 N = GLU) BLOOD UREA 11 mg/dl 6-20 N NITROGEN (test code = BUN) GLOMERULAR >=60 max >60 The estimated FILTRATION RATE estimate glomerular (test code = GFR) filtration rate is computed usingpatient ra ce, age (>18), sex, and serum creatinin e. If anyof the neede d data elements a re missing the Laboratory zane ot compute an estimation of t he glomerular filtration rate . CREATININE (test 0.96 mg/dL 0.44-1.03 N code = CREAT) CALCIUM (test code 8.6 mg/dL 8.5-10.5 N = CA) LIVER FUNCTION [id number] 16:37:00 Test Item Value Reference Range Interpretation Comments TOTAL PROTEIN (test code = PROT) 6.4 g/dL 6.7-8.2 L ALBUMIN (test code = ALB) 3.5 g/dL 3.2-5.5 N BILIRUBIN TOTAL (test code = BILT) 0.50 mg/dL 0.2-1.3 N BILIRUBIN DIRECT (test code = 0.1 mg/dL 0.00-0.20 N BILD) SGOT/AST (test code = AST) 17 U/L 10-42 N SGPT/ALT (test code = ALT) 9 U/L 10-60 L ALKALINE PHOSPHATASE (test code = 67 U/L 42-121 N ALKP) [id number] 16:37:00 Test Item Value Reference Range Interpretation Comments ACETAMINOPHEN (test code = ACET) ug/ml 10.0-30.0 [id number] 16:37:00 Test Item Value Reference Range Interpretation Comments SALICYLATE (test code = DELBERT) mg/dl 0.0-30.0 [id number] 16:37:00 Test Item Value Reference Range Interpretation Comments ALCOHOL (test code = < 5 mg/dl Interpr etive Data:il: ALC) Ethanol Level To convert into le gal units, divide r esult by 1,000 BASIC METABOLIC [id number] 16:30:00 Test Item Value Reference Range Interpretation Comments SODIUM (test code 133 mmol/L 135-145 L = NA) POTASSIUM (test 3.8 mmol/L 3.6-5.0 N code = K) CHLORIDE (test 102 mmol/L 101-111 N code = CL) CARBON DIOXIDE 26 mmol/L 21-31 N (test code = CO2) GLUCOSE (test code 91 mg/dl 70-100 N = GLU) BLOOD UREA 11 mg/dl 6-20 N NITROGEN (test code = BUN) GLOMERULAR >=60 max >60 The estimated FILTRATION RATE estimate glomerular (test code = GFR) filtration rate is computed usingpatient ra ce, age (>18), sex, and serum creatinin e. If anyof the neede d data elements a re missing the Laboratory zane ot compute an estimation of t he glomerular filtration rate . CREATININE (test 0.96 mg/dL 0.44-1.03 N code = CREAT) CALCIUM (test code 8.6 mg/dL 8.5-10.5 N = CA) LIVER FUNCTION [id number] 16:30:00 Test Item Value Reference Range Interpretation Comments TOTAL PROTEIN (test code = PROT) 6.4 g/dL 6.7-8.2 L ALBUMIN (test code = ALB) 3.5 g/dL 3.2-5.5 N BILIRUBIN TOTAL (test code = BILT) mg/dL 0.2-1.3 BILIRUBIN DIRECT (test code = BILD) mg/dL 0.00-0.20 SGOT/AST (test code = AST) U/L 10-42 SGPT/ALT (test code = ALT) U/L 10-60 ALKALINE PHOSPHATASE (test code = U/L 42-121 ALKP) [id number] 16:30:00 Test Item Value Reference Range Interpretation Comments ACETAMINOPHEN (test code = ACET) ug/ml 10.0-30.0 [id number] 16:30:00 Test Item Value Reference Range Interpretation Comments SALICYLATE (test code = DELBERT) mg/dl 0.0-30.0 [id number] 16:30:00 Test Item Value Reference Range Interpretation Comments ALCOHOL (test code = ALC) mg/dl HCG SERUM [id number] 16:25:00 Test Item Value Reference Range Interpretation Comments HCG SERUM QUAL NEGATIVE NEGATIVE This is a srikanth litative (test code = HCGQL) screenin g test.The quantitative Bh cg may be helpful.Weakly positive results should be repeated in 48 hours. CBC W/AUTO [id number] 16:19:00 Test Item Value Reference Range Interpretation Comments WHITE BLOOD CELL (test code = 8.6 x10 3/uL 3.2-11.5 N WBC) RED BLOOD CELL (test code = 4.36 x10(6)/m 3.70-5.10 N RBC) HEMOGLOBIN (test code = HGB) 13.2 g/dL 12.0-15.0 N HEMATOCRIT (test code = HCT) 39.3 % 35.7-44.8 N MEAN CELL VOLUME (test code = 90 fL 80-100 N MCV) MEAN CELL HGB (test code = MCH) 30.3 pg 26.2-33.8 N MEAN CELL HGB CONCENTRATION 33.6 g/dL 30.0-34.0 N (test code = MCHC) RED CELL DISTRIBUTION WIDTH 13.2 % 11.3-14.5 N (test code = RDW) PLATELET COUNT (test code = 260 x10 3/uL 130-408 N PLT) MEAN PLATELET VOLUME (test code 11.1 fL 8.6-12.6 N = MPV) NEUTROPHIL % (test code = NT%) 57.3 % 40.0-70.0 N IMMATURE GRANULOCYTE % (test 1.3 % 0.0-2.0 N code = IG%) LYMPHOCYTE % (test code = LY%) 30.5 % 20-40 N MONOCYTE % (test code = MO%) 9.2 % 1-10 N EOSINOPHIL % (test code = EO%) 1.2 % 0.0-5.0 N BASOPHIL % (test code = BA%) 0.5 % 0.0-1.0 N NUCLEATED RBC % (test code = 0.0 % 0.0-0.9 N NRBC%) NEUTROPHIL # (test code = NT#) 4.9 x10 3/uL 1.6-7.2 N LYMPHOCYTE # (test code = LY#) 2.62 x10 3/uL 1.1-2.7 N MONOCYTE # (test code = MO#) 0.8 x10 3/uL 0.3-0.8 N EOSINOPHIL # (test code = EO#) 0.1 x10 3/uL 0.0-0.5 N BASOPHIL # (test code = BA#) 0.0 x10 3/uL 0.0-0.1 N URINALYSIS [id number] 16:18:00 Test Item Value Reference Range Interpretation Comments UA COLOR (test code = COLU) YELLOW YELLOW UA APPEARANCE (test code = APPU) HAZY CLEAR A UA GLUCOSE DIPSTICK (test code = NEGATIVE NEGATIVE DGLUU) UA BILIRUBIN DIPSTICK (test code = NEGATIVE NEGATIVE BILU) UA KETONE DIPSTICK (test code = Trace NEGATIVE A KETU) UA SPECIFIC GRAVITY (test code = 1.020 1.001-1.030 SGU) UA BLOOD DIPSTICK (test code = FLORECITA) NEGATIVE NEGATIVE UA PH DIPSTICK (test code = STEPH) 6.0 5.0-9.0 UA PROTEIN DIPSTICK (test code = NEGATIVE NEGATIVE PROU) UA UROBILINOGEN DIPSTICK (test code NEGATIVE <=1.0 = URO) UA NITRITE DIPSTICK (test code = NEGATIVE NEGATIVE FARIDEH) UA ASCORBIC ACID DIPSTICK (test NEGATIVE code = AAU) UA LEUKOCYTE ESTERASE DIPSTICK TRACE NEGATIVE A (test code = LEUU) UA WBC (test code = WBCU) 0-5 /HPF 0-5 UA RBC (test code = RBCU) 0-5 /HPF 0-5 UA EPITHELIAL CELLS (test code = MANY /LPF NONE-FEW EPIU) UA BACTERIA (test code = BACU) 1+ /HPF NONE SEEN A UA HYALINE CAST (test code = HYALU) 0-1 /LPF 0-1 UA MUCUS (test code = MUCU) 1+ /LPF NONE SEEN - XR CHEST 1 [id number] 16:03:00Patient Name: SETH PIEDRA Unit No: [id number] EXAMS: CPT: [id number] XR CHEST 1 V [id number] EXAM: XR CHEST 1 VIEW INDICATION: Cough COMPARISON: X-ray dated 12/24/2017. TECHNIQUE: Single frontal view of the chest. FINDINGS: Cardiomediastinal silhouette stable in size and configuration from prior examination. No new focal parenchymal opacity. No pleural effusion or pneumothorax. No acute osseous abnormality or fracture. IMPRESSION: Stable chest x-ray examination without acute cardiopulmonary abnormality. No radiographic evidence of pneumonia. at 1603 Reported and signed by: RUDY AKBAR MD CC: Technologist: Zahraa Miles Time: DAP (Gy m2): Air Kerma (mGy): Trscr Dt/Tm: 10/27/2019 (1603) by:[email or web address] Orig Print D/T: S: 10/26 (1607) BATCH NO: N/A Name: SETH PIEDRA [facility] Phys: SHARAN Kumar Piotr Olivas DO [address] : 1995 Age: 24 Sex: F [place] [address] Loc: N.ERS Exam Date: Status: REG ER PH: FAX: PAGE 1 Signed ReportBASIC METABOLIC [id number] 21:35:00 Test Item Value Reference Range Interpretation Comments SODIUM (test code 134 mmol/L 135-145 L = NA) POTASSIUM (test 3.6 mmol/L 3.6-5.0 N code = K) CHLORIDE (test 100 mmol/L 101-111 L code = CL) CARBON DIOXIDE 23 mmol/L 21-31 N (test code = CO2) GLUCOSE (test code 95 mg/dl 70-100 N = GLU) BLOOD UREA 9 mg/dl 6-20 N NITROGEN (test code = BUN) GLOMERULAR >=60 max >60 The estimated FILTRATION RATE estimate glomerular (test code = GFR) filtration rate is computed usingpatient ra ce, age (>18), sex, and serum creatinin e. If anyof the neede d data elements a re missing the Laboratory zane ot compute an estimation of t he glomerular filtration rate . CREATININE (test 0.73 mg/dL 0.44-1.03 N code = CREAT) CALCIUM (test code 9.0 mg/dL 8.5-10.5 N = CA) LIVER FUNCTION [id number] 21:35:00 Test Item Value Reference Range Interpretation Comments TOTAL PROTEIN (test code = PROT) 6.7 g/dL 6.7-8.2 N ALBUMIN (test code = ALB) 3.6 g/dL 3.2-5.5 N BILIRUBIN TOTAL (test code = BILT) 0.40 mg/dL 0.2-1.3 N BILIRUBIN DIRECT (test code = 0.1 mg/dL 0.00-0.20 N BILD) SGOT/AST (test code = AST) 26 U/L 10-42 N SGPT/ALT (test code = ALT) 15 U/L 10-60 N ALKALINE PHOSPHATASE (test code = 63 U/L 42-121 N ALKP) [id number] 21:35:00 Test Item Value Reference Range Interpretation Comments ACETAMINOPHEN (test code = ACET) < 10.0 ug/ml 10.0-30.0 L [id number] 21:35:00 Test Item Value Reference Range Interpretation Comments SALICYLATE (test code = DELBERT) < 4.0 mg/dl 0.0-30.0 N [id number] 21:35:00 Test Item Value Reference Range Interpretation Comments ALCOHOL (test code = 5 mg/dl Interpr etive Data:il: ALC) Ethanol Level To convert into le gal units, divide result b y 1,000 HCG SERUM [id number] 21:35:00 Test Item Value Reference Range Interpretation Comments HCG SERUM QUAL NEGATIVE NEGATIVE This is a srikanth litative (test code = HCGQL) screenin g test.The quantitative Bh cg may be helpful.Weakly positive results should be repeated in 48 hours. DRUGS OF ABUSE SCREEN [id number] 21:34:00 Test Item Value Reference Range Interpretation Comments UR COCAINE (test code POSITIVE NEGATIVE A This i s a toxicology = COCAU) qualitative scr eening test only, whic hmay detect parent c ompound or metabolite or relatedsubstanc e. If confirmatory te sting is desired, please request drug screen con firmation. These results a re unconfirmed and should be used only for m edical purposes. Cut- off concentration f or Cocaine is 300 ng/mLRec ommended screening cut-o ff concentrations by theSubstance Ab use and [facility]. UR CANABINOIDS (test POSITIVE NEGATIVE A This is a toxicology code = CANU) qualitative scr eening test only which may detect parent compound or metabolite or relatedsubstanc e. If confirmatory te sting is desired, please request drug screen con firmation. These results areunconfirmed and should be used only fo r medical purposes. Cut-o ff concentration f or THC is 50 ng/mLRecomme nded screening cut-o ff concentrations by theSubstance Ab use and Mental Health S ervices Administration. UR AMPHETAMINE (test NEGATIVE NEGATIVE The ing estion of natural code = AMPHU) herbal and yuki nt productscontain ing Ephedra/Ephedra -Metabolit es can produce in urineone or mor e substances capa ble of cross-reacting withAmphetamine /Methamphe tamine immunoas says. This testprovid es a preliminary res ult only. A more specificalterna tive chemical method must be used to obtain aconfirmed analytical resu lt. This is a toxicology qualitative scr eening test only which may detect parent compund or metabolite or relatedsubstanc e. If confirmatory te sting is desired, please request drug screen con firmation. These results areunconfirmed and should be used only fo r medical purposes. Cut-o ff concentration f or Amphetamines is 1000 ng/mLRecommende d screening cut-o ff concentrations by thebstance Ab use and Mental [facility]. UR BARBITURATE (test NEGATIVE NEGATIVE This is a toxicology code = BARBQLU) qualitative screening test only which may detect parent compund or metabolite or relatedsubstanc e. If confirmatory te sting is desired, please request drug screen con firmation. These results areunconfirmed and should be used only fo r medical purposes. Cut-o ff concentration f or Barbiturates is 200 ng/mLRecommende d screening cut-o ff concentrations by thebstance Ab use and [facility]. UR BENZODIAZEPINE NEGATIVE NEGATIVE This is a toxicology (test code = BENZU) qualitat rogelio screening test only which may detect parent compound or metabolite or relatedsubstanc e. If confirmatory te sting is desired, please request drug screen con firmation. These results areunconfirmed and should be used only fo r medical purposes. Cut-o ff concentration f or Benzodiazepines is 200 ng/mLRecommende d screening cut-o ff concentrations by thebstance Ab use and Mental [facility] S ervices Administration. UR OPIATES QUAL (test NEGATIVE NEGATIVE This i s a toxicology code = OPIAQLU) qualitative screening test only which may detect parent compound or metabolite or relatedsubstanc e. If confirmatory te sting is desired, please request drug screen con firmation. These results areunconfirmed and should be used only fo r medical purposes. Cut-o ff concentration f or Opiates is 300 ng/mLRec ommended screening cut-o ff concentrations by thebstance Ab use and Mental Health S ervices Administration. UR PHENCYCLIDINE NEGATIVE NEGATIVE This is a t oxicology (PCP) (test code = qualitati ve screening PHENCU) test only which may detect parent compund or metabolite or relatedsubstanc e. If confirmatory te sting is desired, please request drug screen con firmation. These results areunconfirmed and should be used only fo r medical purposes. Cut-o ff concentration f or PCP is 25 ng/mLRecomme nded screening cut-o ff [facility]. CBC W/AUTO [id number] 21:17:00 Test Item Value Reference Range Interpretation Comments WHITE BLOOD CELL (test code = 12.6 x10 3/uL 3.2-11.5 H WBC) RED BLOOD CELL (test code = 4.67 x10(6)/m 3.70-5.10 N RBC) HEMOGLOBIN (test code = HGB) 13.7 g/dL 12.0-15.0 N HEMATOCRIT (test code = HCT) 40.5 % 35.7-44.8 N MEAN CELL VOLUME (test code = 87 fL 80-100 N MCV) MEAN CELL HGB (test code = MCH) 29.3 pg 26.2-33.8 N MEAN CELL HGB CONCENTRATION 33.8 g/dL 30.0-34.0 N (test code = MCHC) RED CELL DISTRIBUTION WIDTH 13.8 % 11.3-14.5 N (test code = RDW) PLATELET COUNT (test code = 257 x10 3/uL 130-408 N PLT) MEAN PLATELET VOLUME (test code 11.2 fL 8.6-12.6 N = MPV) NEUTROPHIL % (test code = NT%) 65.8 % 40.0-70.0 N IMMATURE GRANULOCYTE % (test 0.7 % 0.0-2.0 N code = IG%) LYMPHOCYTE % (test code = LY%) 20.6 % 20-40 N MONOCYTE % (test code = MO%) 12.0 % 1-10 H EOSINOPHIL % (test code = EO%) 0.6 % 0.0-5.0 N BASOPHIL % (test code = BA%) 0.3 % 0.0-1.0 N NUCLEATED RBC % (test code = 0.0 % 0.0-0.9 N NRBC%) NEUTROPHIL # (test code = NT#) 8.3 x10 3/uL 1.6-7.2 H LYMPHOCYTE # (test code = LY#) 2.60 x10 3/uL 1.1-2.7 N MONOCYTE # (test code = MO#) 1.5 x10 3/uL 0.3-0.8 H EOSINOPHIL # (test code = EO#) 0.1 x10 3/uL 0.0-0.5 N BASOPHIL # (test code = BA#) 0.0 x10 3/uL 0.0-0.1 N URINALYSIS [id number] 21:16:00 Test Item Value Reference Range Interpretation Comments UA COLOR (test code = COLU) YELLOW YELLOW UA APPEARANCE (test code = APPU) Clear CLEAR UA GLUCOSE DIPSTICK (test code = NEGATIVE NEGATIVE DGLUU) UA BILIRUBIN DIPSTICK (test code = NEGATIVE NEGATIVE BILU) UA KETONE DIPSTICK (test code = Trace NEGATIVE A KETU) UA SPECIFIC GRAVITY (test code = 1.011 1.001-1.030 SGU) UA BLOOD DIPSTICK (test code = FLORECITA) NEGATIVE NEGATIVE UA PH DIPSTICK (test code = STEPH) 7.0 5.0-9.0 UA PROTEIN DIPSTICK (test code = NEGATIVE NEGATIVE PROU) UA UROBILINOGEN DIPSTICK (test code NEGATIVE <=1.0 = URO) UA NITRITE DIPSTICK (test code = NEGATIVE NEGATIVE FARIDEH) UA ASCORBIC ACID DIPSTICK (test code NEGATIVE = AAU) UA LEUKOCYTE ESTERASE DIPSTICK (test NEGATIVE NEGATIVE code = LEUU) UA WBC (test code = WBCU) 0-5 /HPF 0-5 UA RBC (test code = RBCU) 0-5 /HPF 0-5 UA EPITHELIAL CELLS (test code = FEW /LPF NONE-FEW EPIU) UA BACTERIA (test code = BACU) 1+ /HPF NONE SEEN A UA MUCUS (test code = MUCU) 1+ /LPF NONE SEEN BASIC METABOLIC [id number] 01:36:00 Test Item Value Reference Range Interpretation Comments SODIUM (test code 142 mmol/L 136-145 N = NA) POTASSIUM (test 3.3 MMOL/L 3.6-5.2 L code = K) CHLORIDE (test 107 MMOL/L 98-110 N code = CL) CARBON DIOXIDE 28 mEq/L 24-32 N (test code = CO2) GLUCOSE (test code 91 mg/dL 70-110 N = GLU) BLOOD UREA < 5 mg/dL 7-18 L NITROGEN (test code = BUN) GLOMERULAR >=60 max >60 The estimated FILTRATION RATE estimate glomerular (test code = GFR) filtration rate is computed usingpatient ra ce, age (>18), sex, and serum creatinin e. If anyof the neede d data elements a re missing the Laboratory zane ot compute an estimation of t he glomerular filtration rate . CREATININE (test 0.75 mg/dL 0.60-1.30 N code = CREAT) CALCIUM (test code 8.9 mg/dL 8.6-10.4 N = CA) CREATINE KINASE (CK)2019-05-15 01:36:00 Test Item Value Reference Range Interpretation Comments CREATINE KINASE (CK) (test code = 385 UNITS/L 25-140 H CK) [id number] 01:36:00 Test Item Value Reference Range Interpretation Comments ACETAMINOPHEN (test code = ACET) < 10.0 ug/mL 10.0-25.0 L [id number]:36:00 Test Item Value Reference Range Interpretation Comments SALICYLATE (test code = DELBERT) < 4.0 mg/dL 0.0-30.0 N [id number] 01:36:00 Test Item Value Reference Range Interpretation Comments ALCOHOL (test code = < 5.0 mg/dl 0.0-80.0 N ALC) ~~~~~~~~~~~~~~~ ~~~~~~~ ~~~~~~~~~~~~~~~ ~~~~~~~ ~~~~~~ RESU LTS ARE TO BE USED FOR MEDICAL PURPOSES ONLY.F OR LEGAL PURPOSES THE SPECIMEN MUST B E COLLECTED BY A CHAINOF CUSTODY. LEGAL TESTING IS NOT PERFORME D BY THIS FACILITY. ~~~~~~~~~~~~~~~ ~~~~~~~ ~~~~~~~~~~~~~~~ ~~~~~~~ ~~~~~~ BASIC METABOLIC [id number] 01:25:00 Test Item Value Reference Range Interpretation Comments SODIUM (test code = NA) 142 mmol/L 136-145 N POTASSIUM (test code = K) 3.3 MMOL/L 3.6-5.2 L CHLORIDE (test code = CL) 107 MMOL/L 98-110 N CARBON DIOXIDE (test code = CO2) 28 mEq/L 24-32 N GLUCOSE (test code = GLU) 91 mg/dL 70-110 N BLOOD UREA NITROGEN (test code = mg/dL 7-18 BUN) GLOMERULAR FILTRATION RATE (test >60 code = GFR) CREATININE (test code = CREAT) mg/dL 0.60-1.30 CALCIUM (test code = CA) 8.9 mg/dL 8.6-10.4 N CREATINE KINASE (CK)2019-05-15 01:25:00 Test Item Value Reference Range Interpretation Comments CREATINE KINASE (CK) (test code = UNITS/L 25-140 CK) [id number] 01:25:00 Test Item Value Reference Range Interpretation Comments ACETAMINOPHEN (test code = ACET) ug/mL 10.0-25.0 [id number] 01:25:00 Test Item Value Reference Range Interpretation Comments SALICYLATE (test code = DELBERT) mg/dL 0.0-30.0 [id number] 01:25:00 Test Item Value Reference Range Interpretation Comments ALCOHOL (test code = ALC) mg/dl 0.0-80.0 DRUGS OF ABUSE SCREEN [id number] 01:13:00 Test Item Value Reference Range Interpretation Comments UR COCAINE (test code = COCAU) POSITIVE NEGATIVE A UR METHAMPHETAMINE (test code = NEGATIVE NEGATIVE METHAMPHU) UR CANABINOIDS (test code = CANU) NEGATIVE NEGATIVE UR AMPHETAMINE (test code = AMPHU) POSITIVE NEGATIVE A UR BARBITURATE (test code = BARBQLU) NEGATIVE NEGATIVE UR BENZODIAZEPINE (test code = NEGATIVE NEGATIVE BENZU) METHADONE (test code = METHDU) NEGATIVE NEGATIVE PROPOXYPHENE SCREEN (test code = NEGATIVE NEGATIVE PROPXSQ) UR OPIATES QUAL (test code = NEGATIVE NEGATIVE OPIAQLU) OXYCODONE (test code = OXYCOD) NEGATIVE NEGATIVE UR TRICYCLICS (test code = TRICYCU) NEGATIVE NEGATIVE UR PHENCYCLIDINE (PCP) (test code = NEGATIVE NEGATIVE PHENCU) UR BUPRENORPHINE QUAL (test code = NEGATIVE NEAGTIVE BUPRESCRT) URINALYSIS [id number] 01:12:00 Test Item Value Reference Range Interpretation Comments UA COLOR (test code YELLOW YELLOW = COLU) UA APPEARANCE (test CLOUDY CLEAR A code = APPU) UA GLUCOSE DIPSTICK NEGATIVE MG/AL NEGATIVE (test code = DGLUU) UA BILIRUBIN NEGATIVE NEGATIVE DIPSTICK (test code = BILU) UA KETONE DIPSTICK NEGATIVE MG/DL NEGATIVE (test code = KETU) UA SPECIFIC GRAVITY 1.015 1.000-1.030 (test code = SGU) UA BLOOD DIPSTICK NEGATIVE NEGATIVE (test code = FLORECITA) UA PH DIPSTICK (test 7.0 4.5-8.5 code = STEPH) UA PROTEIN DIPSTICK 100 (2+) NEGATIVE A (test code = PROU) UA UROBILINOGEN 1.0 EU/dL <=1.0 DIPSTICK (test code = URO) UA NITRITE DIPSTICK NEGATIVE NEGATIVE (test code = FARIDEH) UA LEUKOCYTE NEGATIVE NEGATIVE ESTERASE DIPSTICK (test code = LEUU) UA WBC (test code = 0-3 /HPF 0-3 MANUAL M ICROSCOPIC WBCU) UA RBC (test code = 0-3 /HPF 0-3 RBCU) UA EPITHELIAL CELLS 4+ /LPF NONE-FEW (test code = EPIU) UA BACTERIA (test 3+ /HPF NEGATIVE A code = BACU) URINALYSIS [id number] 01:04:00 Test Item Value Reference Range Interpretation Comments UA COLOR (test code = COLU) YELLOW YELLOW UA APPEARANCE (test code = CLOUDY CLEAR A APPU) UA GLUCOSE DIPSTICK (test code NEGATIVE MG/AL NEGATIVE = DGLUU) UA BILIRUBIN DIPSTICK (test NEGATIVE NEGATIVE code = BILU) UA KETONE DIPSTICK (test code NEGATIVE MG/DL NEGATIVE = KETU) UA SPECIFIC GRAVITY (test code 1.015 1.000-1.030 = SGU) UA BLOOD DIPSTICK (test code = NEGATIVE NEGATIVE FLORECITA) UA PH DIPSTICK (test code = 7.0 4.5-8.5 STEPH) UA PROTEIN DIPSTICK (test code 100 (2+) NEGATIVE A = PROU) UA UROBILINOGEN DIPSTICK (test 1.0 EU/dL <=1.0 code = URO) UA NITRITE DIPSTICK (test code NEGATIVE NEGATIVE = FARIDEH) UA LEUKOCYTE ESTERASE DIPSTICK NEGATIVE NEGATIVE (test code = LEUU) UA WBC (test code = WBCU) /HPF 0-3 UA RBC (test code = RBCU) /HPF 0-3 UA EPITHELIAL CELLS (test code /LPF NONE-FEW = EPIU) UA BACTERIA (test code = BACU) /HPF NEGATIVE CBC W/AUTO [id number] 00:59:00 Test Item Value Reference Range Interpretation Comments WHITE BLOOD CELL (test code = 11.31 K/mm3 5.0-12.0 N WBC) RED BLOOD CELL (test code = RBC) 4.09 M/mm3 4.20-5.40 L HEMOGLOBIN (test code = HGB) 12.3 G/DL 12.0-16.0 N HEMATOCRIT (test code = HCT) 37.4 % 36.0-46.0 N MEAN CELL VOLUME (test code = 91 fL 81-99 N MCV) MEAN CELL HGB (test code = MCH) 30.1 PGM 27-31 N MEAN CELL HGB CONCENTRATION (test 32.9 G/DL 33-37 L code = MCHC) RED CELL DISTRIBUTION WIDTH (test 13.4 % 11.6-16.2 N code = RDW) PLATELET COUNT (test code = PLT) 419 K/mm3 130-400 H MEAN PLATELET VOLUME (test code = 10.6 fl 7.4-10.4 H MPV) NEUTROPHIL % (test code = NT%) 55.2 % 43-65 N IMMATURE GRANULOCYTE % (test code 0.7 % 0.0-2.0 N = IG%) LYMPHOCYTE % (test code = LY%) 31.3 % 20.5-45.5 N MONOCYTE % (test code = MO%) 8.9 % 5.5-11.7 N EOSINOPHIL % (test code = EO%) 3.4 % 0.9-2.9 H BASOPHIL % (test code = BA%) 0.5 % 0.2-1.0 N NUCLEATED RBC % (test code = 0.0 % 0-1.0 N NRBC%) NEUTROPHIL # (test code = NT#) 6.24 K/mm3 2.2-4.8 H LYMPHOCYTE # (test code = LY#) 3.54 K/mm3 1.3-2.9 H MONOCYTE # (test code = MO#) 1.01 K/mm3 0.3-0.8 H EOSINOPHIL # (test code = EO#) 0.38 K/MM3 0.0-0.2 H BASOPHIL # (test code = BA#) 0.06 K/mm3 0.0-0.1 N BHCG, Serum, [id number] 07:50:00 Test Item Value Reference Range Interpretation Comments Preg Qual [Se] (test code = BSHCG) Negative Negative N RPR, [id number] 10:55:00 Test Item Value Reference Range Interpretation Comments RPR (test code = RPR) Non-Reactive Non-Reactive N Thyroid Stimulating Hormone (TSH)2017-09-23 08:11:00 Test Item Value Reference Range Interpretation Comments TSH (test code = TSH) 5.34 mIU/mL 0.270-4.200 H Lipid [id number] 07:58:00 Test Item Value Reference Range Interpretation Comments Cholesterol (test 135 mg/dL 0-200 N code = CHOL) Triglycerides (test 208 mg/dL 9-200 H code = TRIG) HDL (test code = 49 mg/dL 50-60 L HDL) Chol/HDL (test code 2.8 Ratio 0.0-4.4 N = CHOLPHDL) LDL, Calculated 44 0-130 N (NOTE)RISK O F HEART (test code = LDLC) DISEASEPu blished by [place] Heart AssociationAnal yte Optim al Boderline Increased RiskC HOL <200 200-239 >240TRI G <150 150-199 >200HDL Male: >60 <40HDL Female: >60 <50 LDL < 100 130-15 9 >160 LDL NEAR OPTIMAL IS 100- 129 VLDL (test code = 42 mg/dL 5-40 H VLDL) LDL/HDL (test code = 1 LDLPHDL) Alcohol/Ethanol, [id number] 18:40:00 Test Item Value Reference Range Interpretation Comments Alcohol, Ethyl <0.01 g/dL 0.00-0.01 N Intoxicated 0.080 (test code = ETOH) g/dL or m ore Comprehensive Metabolic [id number] 18:40:00 Test Item Value Reference Range Interpretation Comments Sodium (test code = 142 mmol/L 135-145 N NA) Potassium (test 4.1 mmol/L 3.5-5.1 N code = K) Chloride (test code 101 mmol/L 98-105 N = CL) Carbon Dioxide 28 mmol/L 22-29 N (test code = CO2) Glucose (test code 88 mg/dL 70-115 N = GLU) Blood Urea Nitrogen 6 mg/dL 6-20 N (test code = BUN) Creatinine (test 0.6 mg/dL 0.5-0.9 N code = CREAT) Calcium (test code 9.2 mg/dL 8.3-10.5 N = CA) Prot Total (test 7.2 g/dL 6.4-8.3 N code = TP) Albumin (test code 4.6 g/dL 3.5-5.2 N = ALB) A/G Ratio (test 1.8 Ratio code = AGRATIO) Globulin (test code 2.6 2.9-3.1 L = GLOB) Bili Total (test <0.1 mg/dL 0.1-0.9 L code = TBIL) Alk Phos (test code 134 U/L 35-104 H = APHOS) AST (test code = 20 U/L 1-32 N AST) ALT (test code = 9 U/L 1-33 N ALT) BUN/Creatinine 10.0 Ratio (test code = BCRATIO) Anion Gap (test 13 mmol/L 7-16 N code = AGAP) Estimated GFR (test >60 eGFR (es timated code = GFR) mL/min/1.73m2 Glomerular Javier tration Rate) is an est imated value,calculate d from the patient's s jesse creatinine usin g the MDRD equation.I t is NOT the patient 's actual GFR. The eGFR provides a more clinicallyusefu l measure of kidn ey disease than se rum creatinine alone.This calculation kiryb es sex and race into account, if the informationis provided. If th e race is not provided , and the patient isAfrican-Ameri can, multiply by 1.2 12. If sex is not prov ided, and thepatient is female, multipl y by 0.742. Results for patients <18 ye ars ofage have not been validated by th e MDRD study and shoul d be interpretedwith caution.eGFR Re sult Interpretation: eGFR > or = 60 is in t he Normal RangeeGF R < 60 may mean kidney diseaseeGFR < 1 5 may mean kidney failureRange s recommended by the National Kidney Foundation,http ://nkd ep.nih.gov CBC with [id number] 18:23:00 Test Item Value Reference Range Interpretation Comments WBC (test code = WBC) 10.5 K/cumm 4.4-10.5 N RBC (test code = RBC) 4.91 M/cumm 3.75-5.20 N Hemoglobin (test code = HGB) 14.7 gm/dL 12.2-14.8 N Hematocrit (test code = HCT) 42.7 % 36.5-44.4 N MCV (test code = MCV) 87.0 fL 80-100 N MCH (test code = MCH) 30.0 pg 27.0-32.5 N MCHC (test code = MCHC) 34.4 g/dL 32.0-37.5 N RDW (test code = RDW) 12.6 % 11.5-14.5 N Platelet Count (test code = 328 K/cumm 140-440 N PLTCT) MPV (test code = MPV) 7.9 fL Diff Method (test code = DIFFM) Auto Neutrophil (test code = NEUT) 56.4 % 36-70 N Lymphocyte (test code = LYMPH) 32.4 % 12-44 N Monocyte (test code = MONO) 8.4 % 0-11 N Eosinophil (test code = EOS) 2.2 % 0-7 N Basophil (test code = BASO) 0.7 % 0-2 N Neutro Abs (test code = ANEUT) 5.9 K/cumm 1.6-7.4 N Lymph Abs (test code = ALYMPH) 3.4 K/cumm 0.5-4.6 N Hancock Abs (test code = AMONO) 0.9 K/cumm 0.0-1.2 N Eos Abs (test code = AEOS) 0.23 K/cumm 0.00-0.74 N Baso Abs (test code = ABASO) 0.1 K/cumm 0.00-0.21 N RPR, [id number] 04:16:00 Test Item Value Reference Range Interpretation Comments RPR (test code = RPR) Non-Reactive Non-Reactive N Comprehensive Metabolic [id number] 19:51:00 Test Item Value Reference Range Interpretation Comments Sodium (test code = 142 mmol/L 135-145 N NA) Potassium (test 4.1 mmol/L 3.5-5.1 N code = K) Chloride (test code 100 mmol/L 98-105 N = CL) Carbon Dioxide 27 mmol/L 22-29 N (test code = CO2) Glucose (test code 92 mg/dL 70-115 N = GLU) Blood Urea Nitrogen 6 mg/dL 6-20 N (test code = BUN) Creatinine (test 0.7 mg/dL 0.5-0.9 N code = CREAT) Calcium (test code 9.7 mg/dL 8.3-10.5 N = CA) Prot Total (test 7.4 g/dL 6.4-8.3 N code = TP) Albumin (test code 4.4 g/dL 3.5-5.2 N = ALB) A/G Ratio (test 1.5 Ratio code = AGRATIO) Globulin (test code 3.0 2.9-3.1 N = GLOB) Bili Total (test 0.3 mg/dL 0.1-0.9 N code = TBIL) Alk Phos (test code 126 U/L 35-104 H = APHOS) AST (test code = 17 U/L 1-32 N AST) ALT (test code = 9 U/L 1-33 N ALT) BUN/Creatinine 8.6 Ratio (test code = BCRATIO) Anion Gap (test 15 mmol/L 7-16 N code = AGAP) Estimated GFR (test >60 eGFR (es timated code = GFR) mL/min/1.73m2 Glomerular Javier tration Rate) is an est imated value,calculate d from the patient's s jsese creatinine usin g the MDRD equation.I t is NOT the patient 's actual GFR. The eGFR provides a more clinicallyusefu l measure of kidn ey disease than se rum creatinine alone.This calculation kirby es sex and race into account, if the informationis provided. If th e race is not provided , and the patient isAfrican-Ameri can, multiply by 1.2 12. If sex is not prov ided, and thepatient is female, multipl y by 0.742. Results for patients <18 ye ars ofage have not been validated by th e MDRD study and mirna hurst be interpretedwith caution.eGFR Re sult Interpretation: eGFR > or = 60 is in t he Normal RangeeGF R < 60 may mean kidney diseaseeGFR < 1 5 may mean kidney failureRange s recommended by the National Kidney Foundation,http ://nkd ep.nih.gov [id number] 19:50:00 Test Item Value Reference Range Interpretation Comments Amphetamine (test Negative Negative N For diagno stic code = AMPH) purposes only, positive result s should always b e assessedin conjunctionwith the patient's medic al history,clinica l examination and otherfindings.T o fulfill legal requirements, a more specific altern ate chemical method must be used inorder to obtain a Confirmed corey lytical result. GC/MS i s the preferred confi rmatory method. Barbiturates (test Negative Negative N code = JOANNA) Benzodiazepine (test Negative Negative N code = CARMEN) Cocaine (test code = Negative Negative N COCA) Methadone (test code Negative Negative N = MTHD) Opiates (test code = Negative Negative N OPIA) PCP (test code = PCP) Negative Negative N Propoxyphene (test Negative Negative N code = PROPOX) THC (test code = THC) Negative Negative N Alcohol, Urine (test <0.01 g/dL 0.00-0.01 N code = ETOHU) BHCG, Urine, [id number] 19:39:00 Test Item Value Reference Range Interpretation Comments Preg Qual [Ur] (test code = HUHCG) Negative Negative N Urinalysis [id number] 19:14:00 Test Item Value Reference Range Interpretation Comments Color (test code = COLOR) Yellow Yellow,Straw,Pl N yellow Clarity (test code = Clear Clear N CLAR) Specific [place] (test 1.012 1.001-1.035 N code = SPGR) pH (test code = PH) 7.0 5.0-9.0 N Ketone (test code = KET) Negative mg/dL Negative N Glucose (test code = Negative mg/dL Negative N GLUCUR) Protein (test code = Negative mg/dL Negative N PROT) Bilirubin (test code = Negative mg/dL Negative N BILI) Occult Blood (test code = Negative Negative N UDOB) Urobilinogen (test code = 0.2 mg/dL 0.2-1.0 N UROB) Nitrite (test code = NIT) Negative Negative N Leuk Esterase (test code Negative Negative N = LEUK) Micros Exam (test code = Not indicated MEXAM) CBC with [id number] 19:13:00 Test Item Value Reference Range Interpretation Comments WBC (test code = WBC) 10.6 K/cumm 4.4-10.5 H RBC (test code = RBC) 5.37 M/cumm 3.75-5.20 H Hemoglobin (test code = HGB) 16.0 gm/dL 12.2-14.8 H Hematocrit (test code = HCT) 48.4 % 36.5-44.4 H MCV (test code = MCV) 90.2 fL 80-100 N MCH (test code = MCH) 29.8 pg 27.0-32.5 N MCHC (test code = MCHC) 33.0 g/dL 32.0-37.5 N RDW (test code = RDW) 13.0 % 11.5-14.5 N Platelet Count (test code = 351 K/cumm 140-440 N PLTCT) MPV (test code = MPV) 10.8 fL Diff Method (test code = DIFFM) Auto Neutrophil (test code = NEUT) 68.4 % 36-70 N Lymphocyte (test code = LYMPH) 23.8 % 12-44 N Monocyte (test code = MONO) 6.5 % 0-11 N Eosinophil (test code = EOS) 0.9 % 0-7 N Basophil (test code = BASO) 0.4 % 0-2 N Neutro Abs (test code = ANEUT) 7.3 K/cumm 1.6-7.4 N Lymph Abs (test code = ALYMPH) 2.5 K/cumm 0.5-4.6 N Hancock Abs (test code = AMONO) 0.7 K/cumm 0.0-1.2 N Eos Abs (test code = AEOS) 0.09 K/cumm 0.00-0.74 N Baso Abs (test code = ABASO) 0.0 K/cumm 0.00-0.21 N CBC W/PLT COUNT & AUTO [id number] 17:01:00 Test Item Value Reference Range Interpretation Comments WHITE BLOOD CELL COUNT (BEAKER) 12.4 K/ L 4.0-10.0 H (test code = 775) RED BLOOD CELL COUNT (BEAKER) 4.24 M/ L 4.00-5.00 (test code = 761) HEMOGLOBIN (BEAKER) (test code = 12.7 GM/DL 12.0-15.0 410) HEMATOCRIT (BEAKER) (test code = 37.3 % 36.0-45.0 411) MEAN CORPUSCULAR VOLUME (BEAKER) 87.9 fL 82.0-99.0 (test code = 753) MEAN CORPUSCULAR HEMOGLOBIN 29.9 pg 27.0-33.0 (BEAKER) (test code = 751) MEAN CORPUSCULAR HEMOGLOBIN CONC 34.1 GM/DL 32.0-36.0 (BEAKER) (test code = 752) RED CELL DISTRIBUTION WIDTH 13.6 % 10.3-14.2 (BEAKER) (test code = 412) PLATELET COUNT (BEAKER) (test 325 K/CU MM 150-430 code = 756) MEAN PLATELET VOLUME (BEAKER) 8.6 fL 6.5-10.5 (test code = 754) NUCLEATED RED BLOOD CELLS 0 /100 WBC 0-0 (BEAKER) (test code = 413) NEUTROPHILS RELATIVE PERCENT 65 % (BEAKER) (test code = 429) LYMPHOCYTES RELATIVE PERCENT 25 % (BEAKER) (test code = 430) MONOCYTES RELATIVE PERCENT 8 % (BEAKER) (test code = 431) EOSINOPHILS RELATIVE PERCENT 2 % (BEAKER) (test code = 432) BASOPHILS RELATIVE PERCENT 0 % (BEAKER) (test code = 437) NEUTROPHILS ABSOLUTE COUNT 8.10 K/ L 1.80-8.00 H (BEAKER) (test code = 670) LYMPHOCYTES ABSOLUTE COUNT 3.00 K/ L 1.48-4.50 (BEAKER) (test code = 414) MONOCYTES ABSOLUTE COUNT (BEAKER) 1.00 K/ L 0.00-1.30 (test code = 415) EOSINOPHILS ABSOLUTE COUNT 0.20 K/ L 0.00-0.50 (BEAKER) (test code = 416) BASOPHILS ABSOLUTE COUNT (BEAKER) 0.00 K/ L 0.00-0.20 (test code = 417) CREATINE KINASE (CK), TOTAL AND [id number] 04:30:00 Test Item Value Reference Range Interpretation Comments CREATINE KINASE TOTAL (BEAKER) 195 U/L 25-235 (test code = 380) CREATINE KINASE-MB (BEAKER) (test 3.2 ng/mL 0.0-4.9 code = 750) CREATINE KINASE-MB INDEX (BEAKER) 1.6 % (test code = 395) CK-MB Reference Range:<5 Normal5-10 Borderline>10 AbnormalURINALYSIS W/ [id number] 04:28:00 Test Item Value Reference Range Interpretation Comments COLOR (BEAKER) (test code = 470) Yellow CLARITY (BEAKER) (test code = 469) Clear SPECIFIC GRAVITY UA (BEAKER) (test 1.020 1.001-1.035 code = 468) PH UA (BEAKER) (test code = 467) 6.0 5.0-8.0 PROTEIN UA (BEAKER) (test code = Negative Negative 464) GLUCOSE UA (BEAKER) (test code = Negative Negative 365) KETONES UA (BEAKER) (test code = Negative Negative 371) BILIRUBIN UA (BEAKER) (test code = Negative Negative 462) BLOOD UA (BEAKER) (test code = 461) Negative Negative NITRITE UA (BEAKER) (test code = Negative Negative 465) LEUKOCYTE ESTERASE UA (BEAKER) Negative Negative (test code = 466) UROBILINOGEN UA (BEAKER) (test code 0.2 mg/dL 0.2-1.0 = 463) BACTERIA (BEAKER) (test code = 517) Few RBC UA-MANUAL (BEAKER) (test code = <5 /HPF 1659) WBC UA-MANUAL (BEAKER) (test code = <5 /HPF 1661) SQUAMOUS EPITHELIAL MANUAL (BEAKER) 5-10 /HPF (test code = 1663) SOURCE(BEAKER) (test code = 1498) RAPID DRUG SCREEN, [id number] 04:25:00 Test Item Value Reference Range Interpretation Comments BARBITURATE URINE (BEAKER) (test Negative Negative code = 725) BENZODIAZEPINE SCREEN URINE (BEAKER) Negative Negative (test code = 726) COCAINE (METAB.) SCREEN (BEAKER) Negative Negative (test code = 1164) METHADONE SCREEN (BEAKER) (test code Negative Negative = 1436) OPIATE SCREEN URINE (BEAKER) (test Negative Negative code = 734) CANNABINOID SCREEN URINE (BEAKER) Negative Negative (test code = 727) AMPH/METHAMPH SCREEN (BEAKER) (test Negative Negative code = 1438) PHENCYCLIDINE SCREEN URINE (BEAKER) Negative Negative (test code = 608) DRUG CUTOFF CONC.Cocaine 300 ng/mL Cannabinoid 50 ng/mLBenzodiazepine 200 ng/mLBarbiturate 200 ng/mLPhencyclidine 25 ng/mLOpiate 300 ng/mLMethadone 300 ng/mLAmphetamine/ 1000 ng/mL MethamphetamineThis assay provides an unconfirmed qualitative test result for the clinical management of patients in emergency situations. Chain of custody not maintained. Some yucy-qwx-ykimmow medications, as well as adulterants, may cause inaccurate results. Clinical correlation should be applied. A more comprehensivedrug screen or confirmation of a detected drug may be performed upon request.BASIC METABOLIC [id number] 04:25:00 Test Item Value Reference Range Interpretation Comments SODIUM (BEAKER) 140 meq/L 135-148 (test code = 381) POTASSIUM (BEAKER) 3.8 meq/L 3.6-5.5 (test code = 379) CHLORIDE (BEAKER) 105 meq/L 98-106 (test code = 382) CO2 (BEAKER) (test 22 meq/L 20-29 code = 355) BLOOD UREA NITROGEN 6 mg/dL 10-26 L (BEAKER) (test code = 354) CREATININE (BEAKER) 0.70 mg/dL 0.50-1.20 (test code = 358) GLUCOSE RANDOM 110 mg/dL 70-110 (BEAKER) (test code = 652) CALCIUM (BEAKER) 9.1 mg/dL 8.5-10.5 (test code = 697) EGFR (BEAKER) (test 104 mL/min/1.73 ESTIM ATED GFR IS code = 1092) sq m NOT ACCURATE CREATININE CLEARANCE IN PREDICTING GLOMERULAR FILTRATION RATE . ESTIMATED GFR I S NOT APPLICABLE FOR DIALYSIS PATIEN TS. SALICYLATE [id number] 04:25:00 Test Item Value Reference Range Interpretation Comments SALICYLATE LEVEL (BEAKER) (test code < mg/dL 20.0-30.0 L = 764) ACETAMINOPHEN [id number] 04:25:00 Test Item Value Reference Range Interpretation Comments ACETAMINOPHEN LEVEL (BEAKER) (test < ug/mL 10.0-30.0 L code = 344) HEPATIC FUNCTION [id number] 04:24:00 Test Item Value Reference Range Interpretation Comments TOTAL PROTEIN (BEAKER) (test code = 7.3 gm/dL 6.0-8.5 770) ALBUMIN (BEAKER) (test code = 1145) 4.3 g/dL 3.5-5.0 BILIRUBIN TOTAL (BEAKER) (test code 0.3 mg/dL 0.1-1.2 = 377) BILIRUBIN DIRECT (BEAKER) (test 0.2 mg/dL 0.0-0.4 code = 706) ALKALINE PHOSPHATASE (BEAKER) (test 111 U/L 30-115 code = 346) AST (SGOT) (BEAKER) (test code = 17 U/L 5-40 353) ALT (SGPT) (BEAKER) (test code = 10 U/L 5-50 347) [id number] 04:19:00 Test Item Value Reference Range Interpretation Comments ETHANOL (BEAKER) (test code = 400) < mg/dL <=10 CBC W/PLT COUNT & AUTO [id number] 04:10:00 Test Item Value Reference Range Interpretation Comments WHITE BLOOD CELL COUNT (BEAKER) 22.5 K/ L 4.0-10.0 H (test code = 775) RED BLOOD CELL COUNT (BEAKER) 4.61 M/ L 4.00-5.00 (test code = 761) HEMOGLOBIN (BEAKER) (test code = 13.8 GM/DL 12.0-15.0 410) HEMATOCRIT (BEAKER) (test code = 40.8 % 36.0-45.0 411) MEAN CORPUSCULAR VOLUME (BEAKER) 88.4 fL 82.0-99.0 (test code = 753) MEAN CORPUSCULAR HEMOGLOBIN 30.0 pg 27.0-33.0 (BEAKER) (test code = 751) MEAN CORPUSCULAR HEMOGLOBIN CONC 33.9 GM/DL 32.0-36.0 (BEAKER) (test code = 752) RED CELL DISTRIBUTION WIDTH 13.6 % 10.3-14.2 (BEAKER) (test code = 412) PLATELET COUNT (BEAKER) (test 355 K/CU MM 150-430 code = 756) MEAN PLATELET VOLUME (BEAKER) 8.9 fL 6.5-10.5 (test code = 754) NUCLEATED RED BLOOD CELLS 0 /100 WBC 0-0 (BEAKER) (test code = 413) NEUTROPHILS RELATIVE PERCENT 83 % (BEAKER) (test code = 429) LYMPHOCYTES RELATIVE PERCENT 9 % (BEAKER) (test code = 430) MONOCYTES RELATIVE PERCENT 7 % (BEAKER) (test code = 431) EOSINOPHILS RELATIVE PERCENT 0 % (BEAKER) (test code = 432) BASOPHILS RELATIVE PERCENT 0 % (BEAKER) (test code = 437) NEUTROPHILS ABSOLUTE COUNT 18.60 K/ L 1.80-8.00 H (BEAKER) (test code = 670) LYMPHOCYTES ABSOLUTE COUNT 2.10 K/ L 1.48-4.50 (BEAKER) (test code = 414) MONOCYTES ABSOLUTE COUNT (BEAKER) 1.70 K/ L 0.00-1.30 H (test code = 415) EOSINOPHILS ABSOLUTE COUNT 0.00 K/ L 0.00-0.50 (BEAKER) (test code = 416) BASOPHILS ABSOLUTE COUNT (BEAKER) 0.00 K/ L 0.00-0.20 (test code = 417) Urinalysis [id number] 21:41:00 Test Item Value Reference Range Interpretation Comments Color (test code = COLOR) Yellow Yellow,Straw,Pl N yellow Clarity (test code = Clear Clear N CLAR) Specific [place] (test 1.012 1.001-1.035 N code = SPGR) pH (test code = PH) 6.5 5.0-9.0 N Ketone (test code = KET) Negative mg/dL Negative N Glucose (test code = Negative mg/dL Negative N GLUCUR) Protein (test code = 25 mg/dL Negative A PROT) Bilirubin (test code = Negative mg/dL Negative N BILI) Occult Blood (test code = Negative Negative N UDOB) Urobilinogen (test code = 0.2 mg/dL 0.2-1.0 N UROB) Nitrite (test code = NIT) Negative Negative N Leuk Esterase (test code Negative Negative N = LEUK) Micros Exam (test code = Indicated MEXAM) Epithelial Cells (test 30-49 /LPF 0-30 A code = EPI) WBC, Urine (test code = 0-5 /HPF 0-5 N UWBC) RBC, Urine (test code = None Seen /HPF 0-5 A URBC) Bacteria (test code = Many /HPF BACT) [id number] 21:35:00 Test Item Value Reference Range Interpretation Comments Amphetamine (test code Negative Negative N For d iagnostic purposes = AMPH) only, positive results should always b e assessedin conjunctionwith the patient's medic al history,clinica l examination and otherfindings.T o fulfill legal requirements, a more specific altern ate chemical method must be used inorder to obtain a Confirmed corey lytical result. GC/MS i s the preferred confi rmatory method. Barbiturates (test Negative Negative N code = JOANNA) Benzodiazepine (test Negative Negative N code = CARMEN) Cocaine (test code = Negative Negative N COCA) Methadone (test code = Negative Negative N MTHD) Opiates (test code = Negative Negative N OPIA) PCP (test code = PCP) Negative Negative N Propoxyphene (test Negative Negative N code = PROPOX) THC (test code = THC) Negative Negative N BHCG, Urine, [id number] 21:24:00 Test Item Value Reference Range Interpretation Comments Preg Qual [Ur] (test code = HUHCG) Negative Negative N Lipid [id number] 06:57:00 Test Item Value Reference Range Interpretation Comments Cholesterol (test 170 mg/dL 0-200 N code = CHOL) Triglycerides (test 131 mg/dL 9-200 N code = TRIG) HDL (test code = 53 mg/dL 50-60 N HDL) Chol/HDL (test code 3.2 Ratio 0.0-4.4 N = CHOLPHDL) LDL, Calculated 91 0-130 N (NOTE)RISK O F HEART (test code = LDLC) DISEASEPu blished by [place]an Heart AssociationAnal yte Optim al Boderline Increased RiskC HOL <200 200-239 >240TRI G <150 150-199 >200HDL Male: >60 <40HDL Female: >60 <50 LDL < 100 130-15 9 >160 LDL NEAR OPTIMAL IS 100- 129 VLDL (test code = 26 mg/dL 5-40 N VLDL) LDL/HDL (test code = 2 LDLPHDL) RPR, [id number] 13:01:00 Test Item Value Reference Range Interpretation Comments RPR (test code = RPR) Non-Reactive Non-Reactive N Thyroid Stimulating Hormone (TSH)[id number] 08:20:00 Test Item Value Reference Range Interpretation Comments TSH (test code = TSH) 2.98 mIU/mL 0.270-4.200 N Urinalysis [id number] 15:42:00 Test Item Value Reference Range Interpretation Comments Color (test code = COLOR) Yellow Yellow,Straw,Pl N yellow Clarity (test code = Sl Cloudy Clear A CLAR) Specific [place] (test 1.024 1.001-1.035 N code = SPGR) pH (test code = PH) 5.0 5.0-9.0 N Ketone (test code = KET) 150 mg/dL Negative A Glucose (test code = Negative mg/dL Negative N GLUCUR) Protein (test code = 25 mg/dL Negative A PROT) Bilirubin (test code = Negative mg/dL Negative N BILI) Occult Blood (test code = Negative Negative N UDOB) Urobilinogen (test code = 1.0 mg/dL 0.2-1.0 N UROB) Nitrite (test code = NIT) Negative Negative N Leuk Esterase (test code Negative Negative N = LEUK) Micros Exam (test code = Indicated MEXAM) Epithelial Cells (test 50+ /LPF 0-30 A code = EPI) WBC, Urine (test code = 0-5 /HPF 0-5 N UWBC) RBC, Urine (test code = 0-3 /HPF 0-5 A URBC) Bacteria (test code = Many /HPF BACT) [id number] 13:55:00 Test Item Value Reference Range Interpretation Comments Amphetamine (test code Negative Negative N For d iagnostic purposes = AMPH) only, positive results should always b e assessedin conjunctionwith the patient's medic al history,clinica l examination and otherfindings.T o fulfill legal requirements, a more specific altern ate chemical method must be used inorder to obtain a Confirmed corey lytical result. GC/MS i s the preferred confi rmatory method. Barbiturates (test Negative Negative N code = JOANNA) Benzodiazepine (test Negative Negative N code = CARMEN) Cocaine (test code = Negative Negative N COCA) Methadone (test code = Negative Negative N MTHD) Opiates (test code = Negative Negative N OPIA) PCP (test code = PCP) Negative Negative N Propoxyphene (test Negative Negative N code = PROPOX) THC (test code = THC) Negative Negative N BHCG, Serum, [id number] 13:42:00 Test Item Value Reference Range Interpretation Comments Preg Qual [Se] (test code = BSHCG) Negative Negative N Alcohol/Ethanol, [id number] 13:42:00 Test Item Value Reference Range Interpretation Comments Alcohol, Ethyl <0.01 g/dL 0.00-0.01 N Intoxicated 0.080 (test code = ETOH) g/dL or m ore Comprehensive Metabolic [id number] 13:42:00 Test Item Value Reference Range Interpretation Comments Sodium (test code = 138 mmol/L 135-145 N NA) Potassium (test 3.4 mmol/L 3.5-5.1 L code = K) Chloride (test code 94 mmol/L 98-105 L = CL) Carbon Dioxide 24 mmol/L 22-29 N (test code = CO2) Glucose (test code 68 mg/dL 70-115 L = GLU) Blood Urea Nitrogen 7 mg/dL 6-20 N (test code = BUN) Creatinine (test 0.8 mg/dL 0.5-0.9 N code = CREAT) Calcium (test code 9.9 mg/dL 8.3-10.5 N = CA) Prot Total (test 8.3 g/dL 6.4-8.3 N code = TP) Albumin (test code 5.5 g/dL 3.5-5.2 H = ALB) A/G Ratio (test 2.0 Ratio code = AGRATIO) Globulin (test code 2.8 2.9-3.1 L = GLOB) Bili Total (test 1.1 mg/dL 0.1-0.9 H code = TBIL) Alk Phos (test code 121 U/L 35-104 H = APHOS) AST (test code = 28 U/L 1-32 N AST) ALT (test code = 13 U/L 1-33 N ALT) BUN/Creatinine 8.8 Ratio (test code = BCRATIO) Anion Gap (test 20 mmol/L 7-16 H code = AGAP) Estimated GFR (test >60 eGFR (es timated code = GFR) mL/min/1.73m2 Glomerular Javier tration Rate) is an est imated value,calculate d from the patient's s jesse creatinine usin g the MDRD equation.I t is NOT the patient 's actual GFR. The eGFR provides a more clinicallyusefu l measure of kidn ey disease than se rum creatinine alone.This calculation kirby es sex and race into account, if the informationis provided. If th e race is not provided , and the patient isAfrican-Ameri can, multiply by 1.2 12. If sex is not prov ided, and thepatient is female, multipl y by 0.742. Results for patients <18 ye ars ofage have not been validated by th e MDRD study and shoul d be interpretedwith caution.eGFR Re sult Interpretation: eGFR > or = 60 is in t he Normal RangeeGF R < 60 may mean kidney diseaseeGFR < 1 5 may mean kidney failureRange s recommended by the National Kidney Foundation,http ://nkd ep.nih.gov CBC with [id number] 13:15:00 Test Item Value Reference Range Interpretation Comments WBC (test code = WBC) 9.8 K/cumm 4.4-10.5 N RBC (test code = RBC) 5.96 M/cumm 3.75-5.20 H Hemoglobin (test code = HGB) 17.5 gm/dL 12.2-14.8 H Hematocrit (test code = HCT) 51.8 % 36.5-44.4 H MCV (test code = MCV) 87.0 fL 80-100 N MCH (test code = MCH) 29.4 pg 27.0-32.5 N MCHC (test code = MCHC) 33.8 g/dL 32.0-37.5 N RDW (test code = RDW) 14.0 % 11.5-14.5 N Platelet Count (test code = 299 K/cumm 140-440 N PLTCT) MPV (test code = MPV) 8.2 fL Diff Method (test code = DIFFM) Auto Neutrophil (test code = NEUT) 61.5 % 36-70 N Lymphocyte (test code = LYMPH) 23.1 % 12-44 N Monocyte (test code = MONO) 7.8 % 0-11 N Eosinophil (test code = EOS) 7.0 % 0-7 N Basophil (test code = BASO) 0.7 % 0-2 N Neutro Abs (test code = ANEUT) 6.0 K/cumm 1.6-7.4 N Lymph Abs (test code = ALYMPH) 2.3 K/cumm 0.5-4.6 N [place] Abs (test code = AMONO) 0.8 K/cumm 0.0-1.2 N Eos Abs (test code = AEOS) 0.68 K/cumm 0.00-0.74 N Baso Abs (test code = ABASO) 0.1 K/cumm 0.00-0.21 N
[2020-07-06 06:42] LABS: Absolute Lymphocytes (CBC) 2.6 K/uL (0.7-4.9); Basophils % 0.5 % (0-1.3); Hematocrit 39.4 % (36.0-45.0); Lymphocytes % 16.9 % (15.3-44.8); MPV 8.9 fL (7.6-11.3); RBC Red Blood Cell Count 4.45 M/uL (3.86-4.86)
[2020-07-06 06:46] LABS: Protime INR 0.94
[2020-07-06 06:49] LABS: Barbiturates NEGATIVE (NEGATIVE); Benzodiazepines NEGATIVE (NEGATIVE); Cocaine POSITIVE (NEGATIVE); METHAMPHETAM NEGATIVE (NEGATIVE); Methadone NEGATIVE (NEGATIVE); Opiates NEGATIVE (NEGATIVE); Phencyclidine NEGATIVE (NEGATIVE); THC Cannibis NEGATIVE (NEGATIVE)
[2020-07-06 06:57] LABS: Urine Blood TRACE (NEG); Urine Glucose NEGATIVE (NEG); Urine Protein NEGATIVE (NEG)
[2020-07-06 06:59] LABS: Urine Bacteria <20 /HPF (<20); Urine RBC <5 /HPF (NONE SEEN)
[2020-07-06 07:18] LABS: ALT/SGPT 10 U/L (12-78); AST/SGOT 26 U/L (15-37); Albumin 3.5 g/dL (3.4-5.0); Alkaline Phosphatase 113 U/L (45-117); BUN Blood Urea Nitrogen 7 mg/dL (7-18); Bicarbonate 25 mmol/L (21-32); Bilirubin Direct < 0.1 mg/dL (0-0.2); Bilirubin Total 0.2 mg/dL (0.2-1.0); Glucose Level 88 mg/dL (74-106); Lipase 173 U/L (73-393); Potassium 3.6 mmol/L (3.5-5.1); Protein, Total 7.8 g/dL (6.4-8.2); Sodium Level 138 mmol/L (136-145)
--- NOTE | 2020-07-06 07:37 | ER ---
Nurse's Notes [facility] Name: Adelaida Pacheco Age: 25 yrs Sex: Female : 1995 Arrival Date: 07/06/2020 Time: 05:51 Bed 7 Private MD: Diagnosis: Presentation: 07/06 05:58 Chief complaint: EMS states: Called for patient who was walking and stopped at police lp1 station, reports to EMS abdominal pain and possibility of ; on arrival patient is speaking quickly, flight of ideas while speaking with nurse and Provider. Coronavirus screen: Patient appears to report "yes" to all symptoms of COVID. Ebola Screen: No symptoms or risks identified at this time. Initial Sepsis Screen: Does the patient meet any 2 criteria? No. Patient's initial sepsis screen is negative. Does the patient have a suspected source of infection? No. Patient's initial sepsis screen is negative. Risk Assessment: Do you want to hurt yourself or someone else? Patient reports no desire to harm self or others. Onset of symptoms was July 06, 2020. 05:58 Method Of Arrival: EMS: [facility] 1 05:58 Acuity: MAGDI 2 lp1 Triage Assessment: 06:12 General: Appears unkempt, Behavior is anxious, restless. Pain: Complains of pain in ea abdomen. Neuro: Level of Consciousness is awake, alert, obeys commands, Oriented to person, place, time. Cardiovascular: Patient's skin is warm and dry. Respiratory: Airway is patent Respiratory effort is even, unlabored, Respiratory pattern is regular, symmetrical. GI: Abdomen is non-distended. Derm: Skin is pink, warm \\T\\ dry. 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 - Social history:: Smoking status: Patient reports the use of cigarette tobacco products, smokes one pack cigarettes per day. Screenin:12 Abuse screen: Denies threats or abuse. Nutritional screening: No deficits noted. ea Tuberculosis screening: No symptoms or risk factors identified. Fall Risk None identified. Assessment: 06:17 General: Appears in no apparent distress. Behavior is cooperative. Pain: Complains of wh pain in abdomen. Neuro: Level of Consciousness is awake, alert, obeys commands, Oriented to person, place, time. Cardiovascular:. Respiratory: Airway is patent Respiratory effort is even, unlabored, Respiratory pattern is regular, symmetrical, Breath sounds are clear bilaterally. GI: Bowel sounds present X 4 quads. Abd is soft and non tender X 4 quads. Reports lower abdominal pain, nausea, vomiting. : No signs and/or symptoms were reported regarding the genitourinary system. EENT: No signs and/or symptoms were reported regarding the EENT system. Derm: Skin is intact, is healthy with good turgor, Skin is pink, warm \\T\\ dry. normal. Musculoskeletal: Circulation, motion, and sensation intact. 07:19 Reassessment: Patient appears in no apparent distress at this time. No changes from jd3 previously documented assessment. Patient and/or family updated on plan of care and expected duration. Pain level reassessed. 07:24 Reassessment: PT ELOPING FROM HOSPITAL, NON-AGGRESSIVE BUT INSISTENT. PIV D/C'ED. PT bp URGED TO REMAIN, BUT REFUSING. Vital Signs: 05:58 BP 139 / 111; Pulse 112; Resp 18; Temp 98.7(TE); Pulse Ox 99% on R/A; Weight 98.88 kg lp1 (R); Height 5 ft. 5 in. (165.10 cm); 07:19 BP 146 / 92; Pulse 99; Resp 17 S; Pulse Ox 99% on R/A; jd3 05:58 Body Mass Index 36.28 (98.88 kg, 165.10 cm) lp1 ED Course: 05:51 Patient arrived in ED. am2 05:54 Rian Vance MD is Attending Physician. mh7 06:01 Triage completed. lp1 06:01 Arm band placed on. lp1 06:13 Michael Ronquillo RN is Primary Nurse. 06:13 Patient has correct armband on for positive identification. Bed in low position. Call ea light in reach. Side rails up X 1. 06:18 Michael Ronquillo RN is Primary Nurse. 07:29 No provider procedures requiring assistance completed. IV discontinued, intact, bp bleeding controlled, No redness/swelling at site. Pressure dressing applied. Administered Medications: No medications were administered Outcome: 07:30 Eloped from patient exam room, after seeing physician Time discovered patient gone: bp July 06, 2020 at 07:30 07:37 Patient left the ED. bp Signatures: Zahida Belle, RN RN lp1 Avis Sadler Elena, RN RN ea Habalo, Winsy, RN RN wh Davies, Jonathon, RN RN jd3 Peltier, Brian, RN RN bp Holmes, Maurice, MD MD 7
--- NOTE | 2020-07-06 07:38 | EDPHYS ---
Physician Documentation [facility] Name: Adelaida Pacheco Age: 25 yrs Sex: Female : 1995 Arrival Date: 07/06/2020 Time: 05:51 Bed 7 Private MD: ED Physician Rian Vance HPI: 07/06 05:57 This 25 yrs old Female presents to ER via Unassigned with complaints of mh7 Abdominal Pain, Nausea, toe pain. 05:57 The patient presents to the emergency department with depression, over unknown mh7 circumstances, homicidal ideation, the patient has harmed or wants to harm Father, Plan? paranoia, psychosis, has experienced auditory hallucinations, has experienced visual hallucinations, a history of substance abuse, Type: marijuana. Onset: The symptoms/episode began/occurred today. Past psychiatric history: Prior diagnosis: bipolar disorder, schizophrenia, Psychiatric medications include: Primary psychiatric physician: the patient does not have a primary psychiatric physician, it is unknown whether or not the patient has had a prior suicide gesture, the patient has a previous inpatient psychiatric history. Associated signs and symptoms: Pertinent positives; abdominal pain, anxiety, depression, hallucinations, homicidal ideation, substance abuse, suicide ideation, Pertinent negatives: chest pain, chills, delusions, fever, headache, nausea, night sweats, palpitations, shortness of breath, tremor, vomiting. Severity of symptoms: At their worst the symptoms were moderate today, in the emergency department the symptoms are unchanged. Picked up from police station by EMS due to depression and hearing voices. 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 - Social history:: Smoking status: Patient reports the use of cigarette tobacco products, smokes one pack cigarettes per day. ROS: 05:57 Constitutional: Negative for fever, chills, and weight loss, Eyes: Negative for injury, mh7 pain, redness, and discharge, ENT: Negative for injury, pain, and discharge, Neck: Negative for injury, pain, and swelling, Cardiovascular: Negative for chest pain, palpitations, and edema, Respiratory: Negative for shortness of breath, cough, wheezing, and pleuritic chest pain, Back: Negative for injury and pain, : Negative for injury, bleeding, discharge, and swelling, MS/Extremity: Negative for injury and deformity, Skin: Negative for injury, rash, and discoloration, Neuro: Negative for headache, weakness, numbness, tingling, and seizure, Allergy/Immunology: Negative for hives, rash, and allergies, Endocrine: Negative for neck swelling, polydipsia, polyuria, polyphagia, and marked weight changes, Hematologic/Lymphatic: Negative for swollen nodes, abnormal bleeding, and unusual bruising. Exam: 05:57 Head/Face: Normocephalic, atraumatic. Eyes: Pupils equal round and reactive to light, mh7 extra-ocular motions intact. Lids and lashes normal. Conjunctiva and sclera are non-icteric and not injected. Cornea within normal limits. Periorbital areas with no swelling, redness, or edema. Neck: Trachea midline, no thyromegaly or masses palpated, and no cervical lymphadenopathy. Supple, full range of motion without nuchal rigidity, or vertebral point tenderness. No Meningismus. Chest/axilla: Normal chest wall appearance and motion. Nontender with no deformity. No lesions are appreciated. 05:57 Respiratory: Lungs have equal breath sounds bilaterally, clear to auscultation and percussion. No rales, rhonchi or wheezes noted. No increased work of breathing, no retractions or nasal flaring. Abdomen/GI: Soft, non-tender, with normal bowel sounds. No distension or tympany. No guarding or rebound. No evidence of tenderness throughout. Back: No spinal tenderness. No costovertebral tenderness. Full range of motion. Skin: Warm, dry with normal turgor. Normal color with no rashes, no lesions, and no evidence of cellulitis. MS/ Extremity: Pulses equal, no cyanosis. Neurovascular intact. Full, normal range of motion. Neuro: Awake and alert, GCS 15, oriented to person, place, time, and situation. Cranial nerves II-XII grossly intact. Motor strength 5/5 in all extremities. Sensory grossly intact. Cerebellar exam normal. Normal gait. 05:57 Constitutional: The patient appears in no acute distress, alert, awake, anxious. 05:57 Cardiovascular: Rate: tachycardic, Rhythm: regular, Pulses: no pulse deficits are appreciated, Heart sounds: normal, normal S1and S2, Edema: is not appreciated, JVD: is not appreciated. 05:57 Psych: Behavior/mood is anxious, suicidal, depressed, Affect is animated, Oriented to person, place, time, Patient having thoughts of suicide. Denies suicidal plan. Patient having thoughts of homicide. Denies plan. Homicidal thoughts directed towards father Judgement / Insight is impaired. Memory is normal. Delusions/hallucinations are present and described as patient won't say. Vital Signs: 05:58 BP 139 / 111; Pulse 112; Resp 18; Temp 98.7(TE); Pulse Ox 99% on R/A; Weight 98.88 kg lp1 (R); Height 5 ft. 5 in. (165.10 cm); 07:19 BP 146 / 92; Pulse 99; Resp 17 S; Pulse Ox 99% on R/A; jd3 05:58 Body Mass Index 36.28 (98.88 kg, 165.10 cm) lp1 MDM: 07:14 Transition of care: After a detail discussion of the patient's case, care is 7 transferred to Malcolm Stoddard MD. 07/06 05:56 Order name: Acetaminophen; Complete Time: 07:27 07/06 05:56 Order name: Basic Metabolic Panel; Complete Time: 07:07/06 05:56 Order name: CBC with Diff 07/06 05:56 Order name: ETOH Level; Complete Time: 07:07/06 05:56 Order name: Hepatic Function; Complete Time: 07:27 07/06 05:56 Order name: PT-INR; Complete Time: 07:27 07/06 05:56 Order name: Ptt, Activated; Complete Time: 07:07/06 05:56 Order name: Salicylate; Complete Time: 07:27 07/06 05:56 Order name: Urine Drug Screen; Complete Time: 07:27 07/06 05:56 Order name: Lipase; Complete Time: 07:27 07/06 06:05 Order name: Urine Microscopic Only; Complete Time: 07:27 3 07/06 06:05 Order name: Urine Dipstick--Ancillary (enter results); Complete Time: 07:27 3 07/06 06:05 Order name: Urine --Ancillary (enter results); Complete Time: 07:27 tt3 07/06 06:47 Order name: Manual Differential [facility] 07/06 05:56 Order name: EKG; Complete Time: 05:56 07/06 05:56 Order name: EKG - Nurse/Tech; Complete Time: 06:13 07/06 05:56 Order name: IV Saline Lock; Complete Time: 06:13 07/06 05:56 Order name: Labs collected and sent; Complete Time: 06:18 07/06 05:56 Order name: Urine Dipstick-Ancillary (obtain specimen); Complete Time: 06:05 07/06 06:05 Order name: Urine Test (obtain specimen); Complete Time: 06:06 tt3 Administered Medications: No medications were administered Disposition: 07/06/20 07:37 Patient left the facility after being seen by provider. - Patient left due to unknown. Signatures: [facility] Stoddard MD MD rn Pena, Laura RN RN lp1 Chase Sprague RN RN bp Rian Vance MD MD 7 Agustin Prajapati tt3 Corrections: (The following items were deleted from the chart) 07:37 07:37 07/06/2020 07:37 Patient left the facility after being seen by provider. Reason bp stated they are leaving due to unknown. bp
[2020-07-06 07:41] VITALS: TEMP 98.7; O2SAT 99
[2020-07-06 07:43] VITALS: BP 146/92
[2020-07-06 08:55] LABS: Blood Morphology Comment NOT SEEN (NOT SEEN); Platelet Estimate ADEQ
== END 2020-07-06 07:37 | disposition left against medical advice (07) ==
LOC: ER 05:49
DX: F32.9 Major depressive disorder, single episode, unspecified (principal); F17.210 Nicotine dependence, cigarettes, uncomplicated
CPT/HCPCS: 36415; 80048; 80076; 80307; 80320; 80329; 81003; 81015; 81025; 83690; 85025; 85610; 85730; 93005; 99282

== ENCOUNTER 2020-07-08 17:32 | Emergency (ER) | payer OTHER ==
--- OUTSIDE RECORDS SUMMARY | 2020-07-08 17:34 | XMS REPORT | Clinical Summary ---
:1995 Author Organization [facility] Address [address] [place] [address] Care Team Providers Name Role Phone Unavailable Primary Care Provider Unavailable Allergies No Known Active Allergies Medications Not on file Active Problems Not on file Social History Tobacco Use Types Packs/Day Years Used Date Never Assessed Sex Assigned at Date Recorded Not on file Last Filed Vital Signs Not on file Plan of Treatment Not on file Results Not on fileafter 07/08/2019
--- OUTSIDE RECORDS SUMMARY | 2020-07-08 17:34 | XMS REPORT | Clinical Summary ---
:1995 Author Organization [facility] Address [address] [place] [address] Care Team Providers Name Role Phone Unavailable [...] 18 yrs) 03/14/2020 Results Not on fileafter 07/08/2019 Insurance Payer Benefit Plan / Subscriber ID Effective Phone Address T ype Group Dates [place] [employer] [id number] SSI [id number] 2019-Pres [phone] [place] [address] [facility] SELF-PAY SELF-PAY [id number] 2019-Pres [phone] [facility] [place] [address] [place] [phone] (Work) [phone]
--- OUTSIDE RECORDS SUMMARY | 2020-07-08 17:34 | XMS REPORT | Clinical Summary ---
:1995 Author Organization [facility] Address [address] [place] [address] Care Team Providers Name Role Phone Sharpless [...] VACCINE (#1) 2020 Results Not on fileafter 07/08/2019
--- OUTSIDE RECORDS SUMMARY | 2020-07-08 17:37 | XMS REPORT | Continuity of Care Document ---
:1995 Author Organization [facility] t Address [address] [place] [address] Care Team Providers Name Role Phone UNKNOWN [...] Known DA Active U [facility]11 [place] s 00:00: [facility] 00 are [facility] No Known DA Active U [facility] 09-16 [place] [facility] 00:[facility]: [facility] 00 are [facility] risperid DA Active U [facility] one 09-11 [place] 00:00: [facility] 00 are [facility] trazodon DA Active U [facility] e 09-11 [place] 00:00: Healthc 00 are [facility] No Known DA Active U 2018-06 [facility] 07-21 [place] [facility] 00:00: Healthc 00 are [facility] No DA Active U 2018-06 [facility] Allergy 07-15 [place] Informat 00:00: Healthc ion 00 are [facility]ail[facility] [place] [facility] shellfis FA Active [facility] h 09-18 [place] derived 00:00: d [facility] Social History Social Habit Start Date Stop Date Quantity Comments Source History of tobacco Cigarette Smoker [facility] use Sex Assigned At [place] [facility] Cigarettes smoked 2019-04-16 2019-04-16 [facility] current (pack per 00:00:00 00:00:00 day) - Reported Tobacco use and 2018-02-09 2018-02-09 Never used [place] exposure 00:00:00 00:00:00 [facility] Alcohol intake 2018-02-09 2018-02-09 Current [place] 00:00:00 00:00:00 non-drinker of [facility] alcohol (finding) Smoking Status Start Date Stop Date Source Current every day smoker 2018-02-09 00:00:00 Daisy [facility] Never smoker [facility] Medications Ordered Filled Start Stop [...] (INVEGA 19:57: larly. SUSTENNA 05 IM) lisdexamfet 2018-06 Yes Take by [facility] ris amine 1-03 mouth Dose Health (VYVANSE) 19:57: and 10 mg cap 05 frequency unknown . trazodone 2018-0 Yes Take by [facility] on HCl 8-28 mouth. Methodi (TRAZODONE 23:29: st ORAL) 32 [...] 04:25: every Medical 20 MG 04 morning. [place] capsule Procedures This patient has no known procedures. Plan of Care Planned Activity Planned Date Details Comments Source Future Scheduled 2020-03-14 IMM Influenza [facility] 00:00:00 Seasonal Mar to August (>/= 19 yrs) [code = IMM Influenza Seasonal Mar to August (>/= 19 yrs)] Future Scheduled 2020-02-[address] [facility] - Test 00:00:00 (#1) [code = [facility] INFLUENZA VACCINE (#1)] Future Scheduled 2015 Screening for [facility] 00:00:00 malignant neoplasm of cervix (procedure) [code = 952255508] Future Scheduled [address] [facility] - Test 00:00:00 malignant neoplasm Medical C enter of cervix (procedure) [code = 958702603] Encounters Start End Encounter Admission Attending Care Care Encounter Source Date/Time Date/Time Type Type Clinicians Facility Department ID 2019-04-26 2019-04-26 Outpatient [facility] [id number] [place] 00:00:00 00:00:00 [facility] 2019-04-16 2019-04-16 Emergency [facility] [id number] [place] 17:05:32 17:05:32 [facility] 2017-09-22 2017-09-22 Inpatient Leticia BEE [facility] [id number] [facility] 18:37:00 18:37:00 Geovanny BATRES 2017-05-20 2017-06-11 Inpatient Leticia BEE, [facility] [id number] [facility] 21:36:00 17:13:00 Geovanny BATRES Results Test Description [...] 300 ng/mLRecommende d screening cut-off concentrations [facility] and [facility] Services Administration. UR CANABINOIDS (test code = [...] 50 ng/mLRecommende d screening cut-off concentrations by [facility]rowd[facility] Abuse and [facility] Services Administration. UR AMPHETAMINE (test code = [...] 1000 ng/mLRecommende d screening cut-off concentrations by [facility] and [facility] Administration. UR BARBITURATE (test code = [...] 200 ng/mLRecommende d screening cut-off concentrations by [facility] and [facility] Services Administration. UR BENZODIAZEPINE (test code = [...] 200 ng/mLRecommende d screening cut-off concentrations by [facility] Abuse and [facility] Services Administration. UR OPIATES QUAL (test code [...] ng/mLRec ommended screening cut-off concent rations by [facility] Ab use and Mental [facility] Services Administration. [...] 25 ng/mLRecommende d screening cut-off concentrations by [facility] and [facility] Services Administration. URINALYSIS [id number] 00:51:00 Test Item Value Reference Range Interpretation [...] BACU) None /HPF NONE SEEN COMPREHENSIVE METABOLIC [id number] 23:58:00 Test Item Value Reference Range Interpretation [...] PHOSPHATASE (test code = ALKP) THYROID STIMULATING [id number] 23:58:00 Test Item Value Reference Range Interpretation Comments THYROID STIMULATING HORMONE 2.335 uIU/ml 0.450-5.330 N (test code = TSH) [id number] 23:58:00 Test Item Value Reference Range Interpretation Comments ACETAMINOPHEN (test code = ACET) < 10.0 ug/ml 10.0-30.0 L [id number] 23:58:00 Test Item Value Reference Range Interpretation Comments SALICYLATE (test code = DELBERT) < 4.0 mg/dl 0.0-30.0 N [id number] 23:58:00 Test Item Value Reference Range Interpretation Comments ALCOHOL (test code = < 5 mg/dl Interpr etive Data:il: ALC) Ethanol Level To convert into le gal units, divide r esult by 1,000 COMPREHENSIVE METABOLIC [id number] 23:47:00 Test Item Value Reference Range Interpretation [...] PHOSPHATASE (test code = ALKP) THYROID STIMULATING [id number] 23:47:00 Test Item Value Reference Range Interpretation Comments THYROID STIMULATING HORMONE (test uIU/ml 0.450-5.330 code = TSH) [id number] 23:47:00 Test Item Value Reference Range Interpretation Comments ACETAMINOPHEN (test code = ACET) < 10.0 ug/ml 10.0-30.0 L [id number] 23:47:00 Test Item Value Reference Range Interpretation Comments SALICYLATE (test code = DELBERT) < 4.0 mg/dl 0.0-30.0 N [id number] 23:47:00 Test Item Value Reference Range Interpretation Comments ALCOHOL (test code = < 5 mg/dl Interpr etive Data:il: ALC) Ethanol Level To convert into le gal units, divide r esult by 1,000 COMPREHENSIVE METABOLIC [id number] 23:44:00 Test Item Value Reference Range Interpretation [...] PHOSPHATASE (test code = ALKP) THYROID STIMULATING [id number] 23:44:00 Test Item Value Reference Range Interpretation Comments THYROID STIMULATING HORMONE (test uIU/ml 0.450-5.330 code = TSH) [id number] 23:44:00 Test Item Value Reference Range Interpretation Comments ACETAMINOPHEN (test code = ACET) ug/ml 10.0-30.0 [id number] 23:44:00 Test Item Value Reference Range Interpretation Comments SALICYLATE (test code = DELBERT) mg/dl 0.0-30.0 [id number] 23:44:00 Test Item Value Reference Range Interpretation Comments ALCOHOL (test code = ALC) mg/dl COMPREHENSIVE METABOLIC [id number] 23:40:00 Test Item Value Reference Range Interpretation [...] PHOSPHATASE (test code = ALKP) THYROID STIMULATING [id number] 23:40:00 Test Item Value Reference Range Interpretation Comments THYROID STIMULATING HORMONE (test uIU/ml 0.450-5.330 code = TSH) [id number] 23:40:00 Test Item Value Reference Range Interpretation Comments ACETAMINOPHEN (test code = ACET) ug/ml 10.0-30.0 [id number] 23:40:00 Test Item Value Reference Range Interpretation Comments SALICYLATE (test code = DELBERT) mg/dl 0.0-30.0 [id number] 23:40:00 Test Item Value Reference Range Interpretation Comments ALCOHOL (test code = ALC) mg/dl HCG SERUM [id number] 23:39:00 Test Item Value Reference Range Interpretation Comments HCG SERUM QUAL NEGATIVE NEGATIVE This is a srikanth litative (test code = HCGQL) screenin g test.The quantitative Bh cg may be helpful.Weakly positive results should be repeated in 48 hours. CBC W/AUTO [id number] 23:23:00 Test Item Value Reference Range Interpretation [...] 0.0 x10 3/uL 0.0-0.1 N CBC W/AUTO [id number] 23:21:00 Test Item Value Reference Range Interpretation [...] x10 3/uL 0.0-0.5 - XR CHEST 1 [id number] 23:18:00 [facility] 1995 Sex: FPatient Name: SETH PIEDRA Unit No: [id number] EXAMS: CPT: [id number] XR CHEST 1 [id number] CHEST 1 VIEW CLINICAL HISTORY: Palpitations COMP [...] m2): Air Kerma (mGy): Trscr Dt/Tm: 04/02/2020 ([id number]) by:[email or web address] Orig Print D/T: S: 04/02/2020 (3401) BATCH NO: N/A Name: SETH PIEDRA [facility] Phys: JAIR Kumar JudyKelly [address] : 1995 Age: 25 Sex: [place] [address] Loc: N.ERS Exam Date: 04/02/2020 Status: REG ER PH: FAX: PAGE 1 Signed ReportDRUGS OF ABUSE SCREEN [id number] 16:53:00 Test Item Value Reference Range Interpretation [...] Health S ervices Administration. UR CANABINOIDS (test NEGATIVE NEGATIVE This [...] ng/mLRecommende d screening cut-o ff concentrations by [facility] Ab use and [facility] Administration. UR BARBITURATE (test NEGATIVE NEGATIVE This [...] ng/mLRecommende d screening cut-o ff concentrations by [facility] Ab use and [facility]. UR BENZODIAZEPINE NEGATIVE NEGATIVE This is [...] ng/mLRecommende d screening cut-o ff concentrations by [facility] Ab use and [facility] Administration. UR OPIATES QUAL (test NEGATIVE NEGATIVE [...] concentrations by theSubstance Ab use and Mental [facility]. UR PHENCYCLIDINE NEGATIVE NEGATIVE This is a [...] concentrations by thebstance Ab use and Mental [facility]. URINALYSIS [id number] 16:33:00 Test Item Value Reference Range Interpretation [...] 1+ /HPF NONE SEEN A BASIC METABOLIC [id number] 14:44:00 Test Item Value Reference Range Interpretation [...] mg/dL 8.5-10.5 N = CA) COMPREHENSIVE METABOLIC [id number] 14:44:00 Test Item Value Reference Range Interpretation [...] 87 U/L 42-121 N ALKP) LIVER FUNCTION [id number] 14:44:00 Test Item Value Reference Range Interpretation Comments BILIRUBIN DIRECT (test code = BILD) 0.1 mg/dL 0.00-0.20 N [id number] 14:44:00 Test Item Value Reference Range Interpretation Comments ALCOHOL (test code = < 5 mg/dl Interpr etive Data:il: ALC) Ethanol Level To convert into le gal units, divide r esult by 1,000 BASIC METABOLIC [id number] 14:38:00 Test Item Value Reference Range Interpretation [...] mg/dL 8.5-10.5 N = CA) COMPREHENSIVE METABOLIC [id number] 14:38:00 Test Item Value Reference Range Interpretation Comments TOTAL PROTEIN (test code = PROT) g/dL 6.7-8.2 ALBUMIN (test code = ALB) g/dL 3.2-5.5 BILIRUBIN TOTAL (test code = BILT) mg/dL 0.2-1.3 SGOT/AST (test code = AST) U/L 10-42 SGPT/ALT (test code = ALT) U/L 10-60 ALKALINE PHOSPHATASE (test code = U/L 42-121 ALKP) LIVER FUNCTION [id number] 14:38:00 Test Item Value Reference Range Interpretation Comments BILIRUBIN DIRECT (test code = BILD) mg/dL 0.00-0.20 [id number] 14:38:00 Test Item Value Reference Range Interpretation Comments ALCOHOL (test code = ALC) mg/dl BASIC METABOLIC [id number] 14:38:00 Test Item Value Reference Range Interpretation [...] mg/dL 8.5-10.5 N = CA) COMPREHENSIVE METABOLIC [id number] 14:38:00 Test Item Value Reference Range Interpretation Comments TOTAL PROTEIN (test code = PROT) 7.3 g/dL 6.7-8.2 N ALBUMIN (test code = ALB) 3.9 g/dL 3.2-5.5 N BILIRUBIN TOTAL (test code = BILT) mg/dL 0.2-1.3 SGOT/AST (test code = AST) U/L 10-42 SGPT/ALT (test code = ALT) U/L 10-60 ALKALINE PHOSPHATASE (test code = U/L 42-121 ALKP) LIVER FUNCTION [id number] 14:38:00 Test Item Value Reference Range Interpretation Comments BILIRUBIN DIRECT (test code = BILD) mg/dL 0.00-0.20 [id number] 14:38:00 Test Item Value Reference Range Interpretation Comments ALCOHOL (test code = ALC) mg/dl HCG SERUM [id number] 14:35:00 Test Item Value Reference Range Interpretation Comments HCG SERUM QUAL NEGATIVE NEGATIVE This is a srikanth litative (test code = HCGQL) screenin g test.The quantitative Bh cg may be helpful.Weakly positive results should be repeated in 48 hours. CBC W/AUTO [id number] 14:29:00 Test Item Value Reference Range Interpretation [...] 0.0 x10 3/uL 0.0-0.1 N CBC W/AUTO [id number] 14:27:00 Test Item Value Reference Range Interpretation [...] EO#) x10 3/uL 0.0-0.5 Coronavirus 2018 nCoV [id number] 18:04:00 Test Item Value Reference Range Interpretation Comments Coronavirus 2019 Negative Negative This test h as been nCoV Bedside (test authorize d by FDA under code = [id number]) an EUA for use byauthorized laboratories. T [...] and/o r diagnosis of CO VID-19 under Orzzmoi44 4(b)(1) of the Act, 21 U.S .C 360bbb-3(b)(1), unless theauthorizatio n is terminated or r evoked sooner. BASIC METABOLIC [id number] 17:20:00 Test Item Value Reference Range Interpretation [...] mg/dL 8.5-10.5 N = CA) LIVER FUNCTION [id number] 17:20:00 Test Item Value Reference Range Interpretation [...] code = 67 U/L 42-121 N ALKP) [id number] 17:20:00 Test Item Value Reference Range Interpretation Comments ACETAMINOPHEN (test code = ACET) < 10.0 ug/ml 10.0-30.0 L [id number] 17:20:00 Test Item Value Reference Range Interpretation Comments SALICYLATE (test code = DELBERT) < 4.0 mg/dl 0.0-30.0 N [id number] 17:20:00 Test Item Value Reference Range Interpretation Comments ALCOHOL (test code = < 5 mg/dl Interpr etive Data:il: ALC) Ethanol Level To convert into le gal units, divide r esult by 1,000 DRUGS OF ABUSE SCREEN [id number] 16:55:00 Test Item Value Reference Range Interpretation [...] thebstance Ab use and Mental Health [facility]. UR CANABINOIDS (test POSITIVE NEGATIVE A [...] thebstance Ab use and Mental Health [facility] Administration. UR AMPHETAMINE (test NEGATIVE NEGATIVE The [...] thebstance Ab use and Mental Health [facility]. UR BARBITURATE (test NEGATIVE NEGATIVE This [...] ff concentrations by [facility] Ab use and [facility]. UR BENZODIAZEPINE NEGATIVE NEGATIVE This is [...] ng/mLRecommende d screening cut-o ff concentrations by [facility] use and [facility]. UR OPIATES QUAL (test NEGATIVE NEGATIVE [...] ff concentrations by [facility] Ab use and [facility]. UR PHENCYCLIDINE NEGATIVE NEGATIVE This is [...] ff concentrations by [facility] Ab use and [facility]. BASIC METABOLIC [id number] 16:37:00 Test Item Value Reference Range Interpretation [...] mg/dL 8.5-10.5 N = CA) LIVER FUNCTION [id number] 16:37:00 Test Item Value Reference Range Interpretation [...] code = 67 U/L 42-121 N ALKP) [id number] 16:37:00 Test Item Value Reference Range Interpretation Comments ACETAMINOPHEN (test code = ACET) ug/ml 10.0-30.0 [id number] 16:37:00 Test Item Value Reference Range Interpretation Comments SALICYLATE (test code = DELBERT) mg/dl 0.0-30.0 [id number] 16:37:00 Test Item Value Reference Range Interpretation Comments ALCOHOL (test code = < 5 mg/dl Interpr etive Data:il: ALC) Ethanol Level To convert into le gal units, divide r esult by 1,000 BASIC METABOLIC [id number] 16:30:00 Test Item Value Reference Range Interpretation [...] mg/dL 8.5-10.5 N = CA) LIVER FUNCTION [id number] 16:30:00 Test Item Value Reference Range Interpretation [...] PHOSPHATASE (test code = U/L 42-121 ALKP) [id number] 16:30:00 Test Item Value Reference Range Interpretation Comments ACETAMINOPHEN (test code = ACET) ug/ml 10.0-30.0 [id number] 16:30:00 Test Item Value Reference Range Interpretation Comments SALICYLATE (test code = DELBERT) mg/dl 0.0-30.0 [id number] 16:30:00 Test Item Value Reference Range Interpretation Comments ALCOHOL (test code = ALC) mg/dl HCG SERUM [id number] 16:25:00 Test Item Value Reference Range Interpretation Comments HCG SERUM QUAL NEGATIVE NEGATIVE This is a srikanth litative (test code = HCGQL) screenin g test.The quantitative Bh cg may be helpful.Weakly positive results should be repeated in 48 hours. CBC W/AUTO [id number] 16:19:00 Test Item Value Reference Range Interpretation [...] BA#) 0.0 x10 3/uL 0.0-0.1 N URINALYSIS [id number] 16:18:00 Test Item Value Reference Range Interpretation [...] /LPF NONE SEEN - XR CHEST 1 [id number] 16:03:00Patient Name: SETH PIEDRA Unit No: [id number] EXAMS: CPT: [id number] XR CHEST 1 V [id number] EXAM: XR CHEST 1 VIEW INDICATION: Cough [...] (1607) BATCH NO: N/A Name: SETH PIEDRA [facility] ED Phys: Piotr Roblero DO [address] : 1995 Age: 24 Sex: [place] [address] Loc: N.ERS Exam Date: Status: REG ER PH: FAX: PAGE 1 Signed ReportBASIC METABOLIC [id number] 21:35:00 Test Item Value Reference Range Interpretation [...] mg/dL 8.5-10.5 N = CA) LIVER FUNCTION [id number] 21:35:00 Test Item Value Reference Range Interpretation [...] code = 63 U/L 42-121 N ALKP) [id number] 21:35:00 Test Item Value Reference Range Interpretation Comments ACETAMINOPHEN (test code = ACET) < 10.0 ug/ml 10.0-30.0 L [id number] 21:35:00 Test Item Value Reference Range Interpretation Comments SALICYLATE (test code = DELBERT) < 4.0 mg/dl 0.0-30.0 N [id number] 21:35:00 Test Item Value Reference Range Interpretation Comments ALCOHOL (test code = 5 mg/dl Interpr etive Data:il: ALC) Ethanol Level To convert into le gal units, divide result b y 1,000 HCG SERUM [id number] 21:35:00 Test Item Value Reference Range Interpretation Comments HCG SERUM QUAL NEGATIVE NEGATIVE This is a srikanth litative (test code = HCGQL) screenin g test.The quantitative Bh cg may be helpful.Weakly positive results should be repeated in 48 hours. DRUGS OF ABUSE SCREEN [id number] 21:34:00 Test Item Value Reference Range Interpretation [...] thebstance Ab use and Mental Health [facility]. UR CANABINOIDS (test POSITIVE NEGATIVE A [...] ng/mLRecommende d screening cut-o ff concentrations by [facility] Ab use and [facility]. UR BARBITURATE (test NEGATIVE NEGATIVE This [...] ff concentrations by thebstance Ab use and [facility]. UR BENZODIAZEPINE NEGATIVE NEGATIVE This is [...] concentrations by thebstance Ab use and Mental [facility] Administration. UR OPIATES QUAL (test NEGATIVE NEGATIVE [...] concentrations by thebstance Ab use and Mental [facility] S ervices Administration. UR PHENCYCLIDINE NEGATIVE NEGATIVE [...] ng/mLRecomme nded screening cut-o ff concentrations by [facility]. CBC W/AUTO [id number] 21:17:00 Test Item Value Reference Range Interpretation [...] BA#) 0.0 x10 3/uL 0.0-0.1 N URINALYSIS [id number] 21:16:00 Test Item Value Reference Range Interpretation [...] MUCU) 1+ /LPF NONE SEEN BASIC METABOLIC [id number] 01:36:00 Test Item Value Reference Range Interpretation [...] code = 385 UNITS/L 25-140 H CK) [id number]:36:00 Test Item Value Reference Range Interpretation Comments ACETAMINOPHEN (test code = ACET) < 10.0 ug/mL 10.0-25.0 L [id number]:36:00 Test Item Value Reference Range Interpretation Comments SALICYLATE (test code = DELBERT) < 4.0 mg/dL 0.0-30.0 N [id number] 01:36:00 Test Item Value Reference Range Interpretation Comments ALCOHOL (test code = < 5.0 mg/dl 0.0-80.0 N ALC) ~~~~~~~~~~~~~~~ ~~~~~~~ ~~~~~~~~~~~~~~~ ~~~~~~~ ~~~~~~ RESU LTS ARE TO BE USED FOR MEDICAL PURPOSES ONLY.F OR LEGAL PURPOSES THE SPECIMEN MUST B E COLLECTED BY A CHAINOF CUSTODY. LEGAL TESTING IS NOT PERFORME D BY THIS FACILITY. ~~~~~~~~~~~~~~~ ~~~~~~~ ~~~~~~~~~~~~~~~ ~~~~~~~ ~~~~~~ BASIC METABOLIC [id number] 01:25:00 Test Item Value Reference Range Interpretation [...] (CK) (test code = UNITS/L 25-140 CK) [id number] 01:25:00 Test Item Value Reference Range Interpretation Comments ACETAMINOPHEN (test code = ACET) ug/mL 10.0-25.0 [id number] 01:25:00 Test Item Value Reference Range Interpretation Comments SALICYLATE (test code = DELBERT) mg/dL 0.0-30.0 [id number] 01:25:00 Test Item Value Reference Range Interpretation Comments ALCOHOL (test code = ALC) mg/dl 0.0-80.0 DRUGS OF ABUSE SCREEN [id number] 01:13:00 Test Item Value Reference Range Interpretation [...] (test code = NEGATIVE NEAGTIVE BUPRESCRT) URINALYSIS [id number] 01:12:00 Test Item Value Reference Range Interpretation [...] /HPF NEGATIVE A code = BACU) URINALYSIS [id number] 01:04:00 Test Item Value Reference Range Interpretation [...] code = BACU) /HPF NEGATIVE CBC W/AUTO [id number] 00:59:00 Test Item Value Reference Range Interpretation [...] BA#) 0.06 K/mm3 0.0-0.1 N BHCG, Serum, [id number] 07:50:00 Test Item Value Reference Range Interpretation Comments Preg Qual [Se] (test code = BSHCG) Negative Negative N RPR, [id number] 10:55:00 Test Item Value Reference Range Interpretation Comments RPR (test code = RPR) Non-Reactive Non-Reactive N Thyroid Stimulating Hormone (TSH)2017-09-23 08:11:00 Test Item Value Reference Range Interpretation Comments TSH (test code = TSH) 5.34 mIU/mL 0.270-4.200 H Lipid [id number] 07:58:00 Test Item Value Reference Range Interpretation Comments Cholesterol (test 135 mg/dL 0-200 N code = CHOL) Triglycerides (test 208 mg/dL 9-200 H code = TRIG) HDL (test code = 49 mg/dL 50-60 L HDL) Chol/HDL (test code 2.8 Ratio 0.0-4.4 N = CHOLPHDL) LDL, Calculated 44 0-130 N (NOTE)RISK O F HEART (test code = LDLC) DISEASEPu blished by Swiss Heart AssociationAnal yte Optim al Boderline Increased RiskC HOL <200 200-239 >240TRI G <150 150-199 >200HDL Male: >60 <40HDL Female: >60 <50 LDL < 100 130-15 9 >160 LDL NEAR OPTIMAL IS 100- 129 VLDL (test code = 42 mg/dL 5-40 H VLDL) LDL/HDL (test code = 1 LDLPHDL) Alcohol/Ethanol, [id number] 18:40:00 Test Item Value Reference Range Interpretation Comments Alcohol, Ethyl <0.01 g/dL 0.00-0.01 N Intoxicated 0.080 (test code = ETOH) g/dL or m ore Comprehensive Metabolic [id number] 18:40:00 Test Item Value Reference Range Interpretation [...] National Kidney Foundation,http ://nkd ep.nih.gov CBC with [id number] 18:23:00 Test Item Value Reference Range Interpretation [...] code = ALYMPH) 3.4 K/cumm 0.5-4.6 N Monona Abs (test code = AMONO) 0.9 K/cumm 0.0-1.2 N Eos Abs (test code = AEOS) 0.23 K/cumm 0.00-0.74 N Baso Abs (test code = ABASO) 0.1 K/cumm 0.00-0.21 N RPR, [id number] 04:16:00 Test Item Value Reference Range Interpretation Comments RPR (test code = RPR) Non-Reactive Non-Reactive N Comprehensive Metabolic [id number] 19:51:00 Test Item Value Reference Range Interpretation [...] by th e MDRD study and mirna d be interpretedwith caution.eGFR Re sult Interpretation: eGFR > or = 60 is in t he Normal RangeeGF R < 60 may mean kidney diseaseeGFR < 1 5 may mean kidney failureRange s recommended by the National Kidney Foundation,http ://nkd ep.nih.gov [id number] 19:50:00 Test Item Value Reference Range Interpretation [...] 0.00-0.01 N code = ETOHU) BHCG, Urine, [id number] 19:39:00 Test Item Value Reference Range Interpretation Comments Preg Qual [Ur] (test code = HUHCG) Negative Negative N Urinalysis [id number] 19:14:00 Test Item Value Reference Range Interpretation Comments Color (test code = COLOR) Yellow Yellow,Straw,Pl N yellow Clarity (test code = Clear Clear N CLAR) Specific [place] (test 1.012 1.001-1.035 N code = SPGR) [...] code = Not indicated MEXAM) CBC with [id number] 19:13:00 Test Item Value Reference Range Interpretation [...] code = ALYMPH) 2.5 K/cumm 0.5-4.6 N Monona Abs (test code = AMONO) 0.7 K/cumm 0.0-1.2 N Eos Abs (test code = AEOS) 0.09 K/cumm 0.00-0.74 N Baso Abs (test code = ABASO) 0.0 K/cumm 0.00-0.21 N CBC W/PLT COUNT & AUTO [id number] 17:01:00 Test Item Value Reference Range Interpretation [...] = 417) CREATINE KINASE (CK), TOTAL AND [id number] 04:30:00 Test Item Value Reference Range Interpretation Comments CREATINE KINASE TOTAL (BEAKER) 195 U/L 25-235 (test code = 380) CREATINE KINASE-MB (BEAKER) (test 3.2 ng/mL 0.0-4.9 code = 750) CREATINE KINASE-MB INDEX (BEAKER) 1.6 % (test code = 395) CK-MB Reference Range:<5 Normal5-10 Borderline>10 AbnormalURINALYSIS W/ [id number] 04:28:00 Test Item Value Reference Range Interpretation [...] code = 1663) SOURCE(BEAKER) (test code = 2545) RAPID DRUG SCREEN, [id number] 04:25:00 Test Item Value Reference Range Interpretation [...] situations. Chain of custody not maintained. Some vjoe-eci-dzeafyy medications, as well as adulterants, may cause inaccurate results. Clinical correlation should be applied. A more comprehensivedrug screen or confirmation of a detected drug may be performed upon request.BASIC METABOLIC [id number] 04:25:00 Test Item Value Reference Range Interpretation [...] NOT APPLICABLE FOR DIALYSIS PATIEN TS. SALICYLATE [id number] 04:25:00 Test Item Value Reference Range Interpretation Comments SALICYLATE LEVEL (BEAKER) (test code < mg/dL 20.0-30.0 L = 764) ACETAMINOPHEN [id number] 04:25:00 Test Item Value Reference Range Interpretation Comments ACETAMINOPHEN LEVEL (BEAKER) (test < ug/mL 10.0-30.0 L code = 344) HEPATIC FUNCTION [id number] 04:24:00 Test Item Value Reference Range Interpretation [...] (test code = 10 U/L 5-50 347) [id number] 04:19:00 Test Item Value Reference Range Interpretation Comments ETHANOL (BEAKER) (test code = 400) < mg/dL <=10 CBC W/PLT COUNT & AUTO [id number] 04:10:00 Test Item Value Reference Range Interpretation [...] L 0.00-0.20 (test code = 417) Urinalysis [id number] 21:41:00 Test Item Value Reference Range Interpretation Comments Color (test code = COLOR) Yellow Yellow,Straw,Pl N yellow Clarity (test code = Clear Clear N CLAR) Specific [place] (test 1.012 1.001-1.035 N code = SPGR) [...] Bacteria (test code = Many /HPF BACT) [id number] 21:35:00 Test Item Value Reference Range Interpretation [...] = THC) Negative Negative N BHCG, Urine, [id number] 21:24:00 Test Item Value Reference Range Interpretation Comments Preg Qual [Ur] (test code = HUHCG) Negative Negative N Lipid [id number] 06:57:00 Test Item Value Reference Range Interpretation Comments Cholesterol (test 170 mg/dL 0-200 N code = CHOL) Triglycerides (test 131 mg/dL 9-200 N code = TRIG) HDL (test code = 53 mg/dL 50-60 N HDL) Chol/HDL (test code 3.2 Ratio 0.0-4.4 N = CHOLPHDL) LDL, Calculated 91 0-130 N (NOTE)RISK O F HEART (test code = LDLC) DISEASEPu blished by [place] Heart AssociationAnal yte Optim al Boderline Increased RiskC HOL <200 200-239 >240TRI G <150 150-199 >200HDL Male: >60 <40HDL Female: >60 <50 LDL < 100 130-15 9 >160 LDL NEAR OPTIMAL IS 100- 129 VLDL (test code = 26 mg/dL 5-40 N VLDL) LDL/HDL (test code = 2 LDLPHDL) RPR, [id number] 13:01:00 Test Item Value Reference Range Interpretation Comments RPR (test code = RPR) Non-Reactive Non-Reactive N Thyroid Stimulating Hormone (TSH)2016-11-13 08:20:00 Test Item Value Reference Range Interpretation Comments TSH (test code = TSH) 2.98 mIU/mL 0.270-4.200 N Urinalysis [id number] 15:42:00 Test Item Value Reference Range Interpretation Comments Color (test code = COLOR) Yellow Yellow,Straw,Pl N yellow Clarity (test code = Sl Cloudy Clear A CLAR) Specific [place] (test 1.024 1.001-1.035 N code = SPGR) [...] Bacteria (test code = Many /HPF BACT) [id number] 13:55:00 Test Item Value Reference Range Interpretation [...] = THC) Negative Negative N BHCG, Serum, [id number] 13:42:00 Test Item Value Reference Range Interpretation Comments Preg Qual [Se] (test code = BSHCG) Negative Negative N Alcohol/Ethanol, [id number] 13:42:00 Test Item Value Reference Range Interpretation Comments Alcohol, Ethyl <0.01 g/dL 0.00-0.01 N Intoxicated 0.080 (test code = ETOH) g/dL or m ore Comprehensive Metabolic [id number] 13:42:00 Test Item Value Reference Range Interpretation [...] [employer],http :[email or web address] ep.nih.gov CBC with [id number] 13:15:00 Test Item Value Reference Range Interpretation [...] code = ALYMPH) 2.3 K/cumm 0.5-4.6 N Monona Abs (test code = AMONO) 0.8 K/cumm 0.0-1.2 N Eos Abs (test code = AEOS) 0.68 K/cumm 0.00-0.74 N Baso Abs (test code = ABASO) 0.1 K/cumm 0.00-0.21 N
[2020-07-08 18:31] LABS: Barbiturates NEGATIVE (NEGATIVE); Benzodiazepines NEGATIVE (NEGATIVE); Cocaine POSITIVE (NEGATIVE); METHAMPHETAM NEGATIVE (NEGATIVE); Methadone NEGATIVE (NEGATIVE); Opiates NEGATIVE (NEGATIVE); Phencyclidine NEGATIVE (NEGATIVE); THC Cannibis NEGATIVE (NEGATIVE)
[2020-07-08 18:34] LABS: Urine Blood NEGATIVE (NEG); Urine Glucose NEGATIVE (NEG); Urine Protein NEGATIVE (NEG)
--- NOTE | 2020-07-08 20:31 | ER ---
Nurse's Notes [facility] Name: Adelaida Pacheco Age: 25 yrs Sex: Female : 1995 Arrival Date: 07/08/2020 Time: 17:36 Bed External Waiting Private MD: Diagnosis: Presentation: 07/08 17:36 Chief complaint: EMS states: she [place] the [place] and the saurav told her she tw2 could get her nails done for free and then that wasn't the case so the police were called, vs stable, she denies SI/HI states she just has a mental problem and wants to go to a facility. Coronavirus screen: At this time, the client does not indicate any symptoms associated with coronavirus-19. Ebola Screen: Patient denies travel to an Ebola-affected area in the 21 days before illness onset. Initial Sepsis Screen: Does the patient meet any 2 criteria? HR > 90 bpm. No. Patient's initial sepsis screen is negative. Does the patient have a suspected source of infection? No. Patient's initial sepsis screen is negative. Risk Assessment: Do you want to hurt yourself or someone else? Patient reports no desire to harm self or others. Onset of symptoms was July 08, 2020. 17:36 Method Of Arrival: EMS: [facility] tw2 17:36 Acuity: MAGDI 2 tw2 17:39 Note pt states " i just want to get some help, i was at [facility] before and i tw2 want to go back". 17:39 Note "i am an alien too because they cant get no blood from me". 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 Triage Assessment: 17:39 General: Appears in no apparent distress. Behavior is anxious. Pain: Denies pain. tw2 Historical: - Allergies: 17:39 Iodine; tw2 - PMHx: 17:39 ADD/ADHD; Bipolar disorder; Schizophrenia; tw2 - PSHx: 17:39 None; tw2 - Immunization history:: Adult Immunizations. - Social history:: Smoking status: Patient reports the use of cigarette tobacco products, smokes one pack cigarettes per day. Assessment: 17:51 Reassessment: pt back to triage room states "i have to get to someone special", tw2 pt encouraged to wait in lobby for her name to be called. 20:06 Reassessment: call not found. rr5 20:09 Reassessment: pt not in the ED lobby at this time. [facility] report the patient is in front sg of the PD calling and reporting that she has " maggots falling from her vagina". Vital Signs: 17:36 BP 128 / 80; Pulse 112; Resp 19; Temp 98.5(TE); Pulse Ox 96% on R/A; Weight 61.69 kg tw2 (R); Height 5 ft. 5 in. (165.10 cm); 17:36 Body Mass Index 22.63 (61.69 kg, 165.10 cm) tw2 ED Course: 17:36 Patient arrived in ED. ds1 17:38 Triage completed. tw2 17:41 Arm band placed on. tw2 20:19 Patient's name was called from ER lobby. No response. Unable to locate patient. Will sg disposition as left without being seen by a provider. Administered Medications: No medications were administered Outcome: 20:30 Patient left the ED. sg Signatures: Nick Caballero RN RN sg Fernanda Thibodeaux ds1 Elizabeth Bolton RN RN tw2 Yehuda Dawson RN RN rr5
[2020-07-08 20:36] VITALS: BP 128/80; TEMP 98.5; O2SAT 96
== END 2020-07-08 20:30 | disposition left against medical advice (07) ==
LOC: ER 17:32
DX: F20.9 Schizophrenia, unspecified (principal); F31.9 Bipolar disorder, unspecified; F90.9 Attention-deficit hyperactivity disorder, unspecified type; Z53.21 Procedure and treatment not carried out due to patient leaving prior to being seen by health care provider; F17.210 Nicotine dependence, cigarettes, uncomplicated
CPT/HCPCS: 80307; 81003; 81025; 99282